=== PATIENT | male | born 1960 | race Caucasian/White ===

== ENCOUNTER 2018-11-10 14:55 | Emergency (ER) | payer SELFPAY ==
[~2018-11-10] VITALS: Ht 162.6 cm; Wt 65.8 kg
--- OUTSIDE RECORDS SUMMARY | 2018-11-10 14:57 | XMS REPORT | Summary of Care ---
Author Author [facility] Organization [facility] Address Unknown Phone Unavailable Encounter HQ Tito_guera(FIN) [phone] Date(s): 01/26/15 - 01/26/15 [facility] [address] [place] [phone] Discharge Disposition: Home Attending Physician: Yared Nicole MD Vital Signs No data available for this section Problem List Condition Effective Dates Status Health Status Informant Kidney Resolved stone(Confirmed) Murmur, Resolved heart(Confirmed) Tubes(Confirmed)1 Resolved 1ear tubes. Allergies, Adverse Reactions, Alerts Substance Reaction Severity Status NKDA Active Medications No data available for this section Results No data available for this section Immunizations Vaccine Date Refusal Reason diphtheria/pertussis, acel/tetanus adult 01/07/15 Procedures Procedure Date Related Diagnosis Body Site Injection procedure for shoulder arthrography 01/26/[address]/MRI shoulder arthrography Colonoscopy1 Kidney stone analysis2 1with biopsy removal. 2kidney stone removal Social History Social History Type Response Alcohol Current, Type Beer. Frequency: 1-2 times per month. Smoking Status Never smoker; Exposure to Tobacco Smoke None; Cigarette Smoking Last 365 Days No; Reg Smoking Cessation Counseling No Assessment and Plan No data available for this section
--- OUTSIDE RECORDS SUMMARY | 2018-11-10 14:57 | XMS REPORT | Summary of Care ---
Author Author [facility] Organization [facility] Address Unknown Phone Unavailable Encounter THOMAS Cameron(MADONNA) [id number] Date(s): 01/07/15 - 01/12/15 [facility] [address] [employer] provided by [facility] [place] [address]- Discharge Disposition: Home Attending Physician: Mendoza Garcia MD Admitting Physician: Sarai Powell MD Vital Signs 1 2 3 Most recent to oldest [Reference Range]: 162.56 cm (01/08/15 12:50 AM) 170.18 cm (01/07/15 5:30 PM) Height 98.1 DegF (01/12/15 11:19 AM) 98.4 DegF (01/12/15 7:44 AM) 98.5 DegF (01/12/15 12:25 AM) Temperature Oral [96.4-99.1 DegF] 110/75 mmHg (01/12/15 11:19 AM) 111/63 mmHg (01/12/15 7:44 AM) 119/71 mmHg (01/12/15 12:25 AM) Blood Pressure [90-140/60-90 mmHg] 18 BRMIN (01/12/15 11:19 AM) 18 BRMIN (01/12/15 7:44 AM) 18 BRMIN (01/12/15 12:25 AM) Respiratory Rate [14-20 BRMIN] 78 bpm (01/12/15 11:19 AM) 80 bpm (01/12/15 7:44 AM) 78 bpm (01/12/15 12:25 AM) Peripheral Pulse Rate [60-100 bpm] 68.182 kg (01/08/15 12:50 AM) 75 kg (01/07/15 5:30 PM) Weight 25.8 m2 (01/08/15 12:50 AM) 25.9 m2 (01/07/15 5:30 PM) Body Mass Index Problem List Condition Effective Dates Status Health Status Informant Kidney Resolved stone(Confirmed) Murmur, Resolved heart(Confirmed) Tubes(Confirmed)1 Resolved 1ear tubes. Allergies, Adverse Reactions, Alerts Substance Reaction Severity Status NKDA Active Medications 1/2 NS 500 mL 500 mL, Rate: 75 ml/hr, Infuse over: 6.7 hr, Route: IV, Dosing Weight 68.182 kg, Total Volume: 500, Start date: 01/08/15 18:36:00, Duration: 1 doses or times, S top date: 01/09/15 1:17:00 Start Date: 01/08/15 Stop Date: 01/08/15 Status: Completed acetaminophen 1,000 mg, 2 tab, Route: PO, Drug form: TAB, Q6H, Start date: 01/09/15 18:00:00, Duration: 30 day, Stop date: 02/08/15 12:00:00 Notes: Max acetaminophen 4000 mg/day (4 gm/day). (Same as: Tylenol Extra Streng th) Start Date: 01/09/15 Stop Date: 01/12/15 Status: Discontinued acetaminophen 650 mg, Route: PO, Drug form: TAB, ONCE, Dosing Weight 75, kg, Priority: STAT, S tart date: 01/07/15 22:16:00, Stop date: 01/07/15 22:16:00 Start Date: 01/07/15 Stop Date: 01/07/15 Status: Completed acetaminophen 1,000 mg, 100 mL, Route: IVPB, Drug form: INJ, Q6Hnow, Dosing Weight 75, kg, Sta rt date: 01/08/15 0:00:00, Duration: 30 day, Stop date: 02/06/15 18:00:00 Notes: Infuse over 15 minutesDo not exceed 4gm/day of acetaminophen MEDICAT ION WASTE Product Size: 1000 mgProduct Wasted: _0__ mg Start Date: 01/08/15 Stop Date: 01/09/15 Status: Discontinued Ancef 1 gm, Route: IVPB, Drug form: PDR/INJ, Q8H, Dosing Weight 68.182, kg, Start date : 01/08/15 18:00:00, Duration: 48 hr, Stop date: 01/10/15 10:00:00 Notes: (Same As: Ancef, Kefzol) MEDICATION WASTE Product Size: 1000 mgP roduct Wasted: ___ mg Start Date: 01/08/15 Stop Date: 01/08/15 Status: Canceled Ancef 2 gm, Route: IVP, ONCE, Dosing Weight 68.182, kg, Start date: 01/08/15 10:46:00, Duration: 1 doses or times, Stop date: 01/08/15 10:46:00, Surgical Prophylaxis Only; For patients < 120 kg Start Date: 01/08/15 Stop Date: 01/08/15 Status: Completed Ancef + Sodium Chloride 0.9% IV 100 mL 2 gm, Route: IVPB, ABXQ8H, Dosing Weight 75, kg, Priority: STAT, Start date: 20:35:00, Duration: 30 day, Stop date: 02/06/15 12:00:00 Notes: (Same As: Ancef, Kefzol) MEDICATION WASTE Product Size: 1000 mgP roduct Wasted: 0 mg Start Date: 01/07/15 Stop Date: 01/08/15 Status: Discontinued Ancef + Sodium Chloride 0.9% IV 100 mL 2 gm, Route: IVPB, ONCE, Dosing Weight 75, kg, Priority: STAT, Start date: 01/07 17:43:00, Stop date: 01/07/15 17:43:00 Notes: (Same As: Ancef, Kefzol) MEDICATION WASTE Product Size: 1000 mgP roduct Wasted: 0 mg Start Date: 01/07/15 Stop Date: 01/07/15 Status: Completed Benadryl 12.5 mg, 5 mL, Route: PO, Drug form: LIQ, ONCE, Dosing Weight 68.182, kg, Start date: 01/08/15 15:45:00, Stop date: 01/08/15 15:45:00 Notes: (Same as: Benadryl) Start Date: 01/08/15 Stop Date: 01/08/15 Status: Completed Benadryl 25 mg, 1 cap, Route: PO, Drug form: CAP, TID, Dosing Weight 68.182, kg, PRN Itch ing, Start date: 01/08/15 15:45:00, Duration: 30 day, Stop date: 02/07/15 15:44: 00 Notes: (Same as: Benadryl) Start Date: 01/08/15 Stop Date: 01/12/15 Status: Discontinued bisacodyl 10 mg, 1 supp, Route: ND, Drug form: SUPP, Daily, Dosing Weight 75, kg, PRN Cons tipation, Start date: 01/07/15 22:33:00, Duration: 30 day, Stop date: 02/06/15 2 2:32:00 Notes: (Same As: Dulcolax, Bisco-Lax) Start Date: 01/07/15 Stop Date: 01/12/15 Status: Discontinued Cleocin HCl + Sodium Chloride 0.9% IV 100 mL 600 mg, 4 mL, Route: IVPB, Drug form: INJ, ABXQ8H, Start date: 01/08/15 18:00:00 , Stop date: 01/10/15 18:00:00 Notes: (clindamycin 150 mg/1 ml (600 mg/4 ml VL) INJ) (Same As: Cleocin) Start Date: 01/08/15 Stop Date: 01/10/15 Status: Completed Dextrose 5% with 0.9% NaCl IV 1,000 mL 1,000 mL, Rate: 100 ml/hr, Infuse over: 10 hr, Route: IV, Dosing Weight 75 kg, T otal Volume: 1,000, Start date: 01/07/15 22:33:00, Duration: 30 day, Stop date: 02/06/15 22:32:00 Start Date: 01/07/15 Stop Date: 01/08/15 Status: Discontinued Dilaudid 1 mg, 0.5 mL, Route: IV, Drug form: INJ, ONCE, Dosing Weight 75, kg, Start date: 01/07/15 19:18:00, Stop date: 01/07/15 19:18:00 Notes: (Same as: Dilaudid) Start Date: 01/07/15 Stop Date: 01/07/15 Status: Completed Dilaudid 1 mg, 0.5 mL, Route: IV, Drug form: INJ, ONCE, Dosing Weight 75, kg, Start date: 01/07/15 20:30:00, Stop date: 01/07/15 20:30:00 Notes: Same as: Dilaudid Start Date: 01/07/15 Stop Date: 01/07/15 Status: Completed diphenhydrAMINE 12.5 mg, 5 mL, Route: PO, Drug form: LIQ, Q6H, Dosing Weight 75, kg, PRN Itching , Start date: 01/07/15 22:33:00, Duration: 30 day, Stop date: 02/06/15 22:32:00 Notes: (Same as: Benadryl) Start Date: 01/07/15 Stop Date: 01/08/15 Status: Discontinued docusate 100 mg, 1 cap, Route: PO, Drug form: CAP, BID, Dosing Weight 75, kg, Start date: 01/08/15 9:00:00, Duration: 30 day, Stop date: 02/06/15 17:00:00 Notes: (Same as: Colace) (Do Not Crush) Start Date: 01/08/15 Stop Date: 01/12/15 Status: Discontinued docusate sodium 100 mg oral capsule 100 mg=1 cap, PO, BID, # 28 cap, 0 Refill(s) Start Date: 01/12/15 Stop Date: 01/26/15 Status: Ordered fentaNYL 50 microgram, Route: IVP, ONCE, Dosing Weight 75, kg, Priority: STAT, Start date : 01/07/15 17:44:00, Stop date: 01/07/15 17:44:00 Start Date: 01/07/15 Stop Date: 01/07/15 Status: Completed fentaNYL 50 microgram, Route: IVP, ONCE, Dosing Weight 75, kg, Priority: STAT, Start date : 01/07/15 17:44:00, Stop date: 01/07/15 17:44:00 Start Date: 01/07/15 Stop Date: 01/07/15 Status: Completed Flomax 0.4 mg, 1 cap, Route: PO, Drug form: CAP, Daily, Dosing Weight 68.182, kg, Start date: 01/09/15 14:00:00, Duration: 30 day, Stop date: 02/08/15 9:00:00 Notes: (Same As: Flomax) "Do Not Crush" Start Date: 01/09/15 Stop Date: 01/12/15 Status: Discontinued gabapentin 300 mg, 1 cap, Route: PO, Drug form: CAP, Q8Hnow, Dosing Weight 75, kg, Start da te: 01/08/15 0:00:00, Duration: 30 day, Stop date: 02/06/15 16:00:00 Notes: (Same as: Neurontin) Start Date: 01/08/15 Stop Date: 01/12/15 Status: Discontinued gabapentin 300 mg oral capsule 300 mg=1 cap, PO, Q8Hnow, # 42 cap, 0 Refill(s) Start Date: 01/12/15 Stop Date: 01/26/15 Status: Ordered gentamicin + Sodium Chloride 0.9% IV 100 mL 380 mg, 9.5 mL, Route: IVPB, ONCE, Dosing Weight 75, kg, Priority: STAT, Start d ate: 01/07/15 19:31:00, Stop date: 01/07/15 19:31:00 Notes: TIME CRITICAL MEDICATION(Same as Garamycin) Start Date: 01/07/15 Stop Date: 01/07/15 Status: Discontinued Lidoderm 5% topical film (patch) 1 patch, TOP, Q24H, # 30 patch, 0 Refill(s) Start Date: 01/12/15 Stop Date: 02/11/15 Status: Ordered Lidoderm 5% topical film (patch) 1 patch, Route: TOP, Q24H, Drug form: FILM, Start date: 01/08/15 0:00:00, Durati on: 30 day, Stop date: 02/06/15 0:00:00 Notes: Apply only once for up to 12 hours in [id number] period (12 hours on and 12 hours off).(Same as: Lidoderm)"Remove old patch before application of new patch" Start Date: 01/08/15 Stop Date: 01/12/15 Status: Discontinued Lovenox 30 mg, 0.3 mL, Route: SUB-Q, Drug form: INJ, Q12H, Dosing Weight 75, kg, Priorit y: Routine, Start date: 01/08/15 9:00:00, Duration: 30 day, Stop date: 02/06/15 21:00:00 Notes: (Same as: Lovenox) Start Date: 01/08/15 Stop Date: 01/12/15 Status: Discontinued Lovenox 1 mg/kg, Route: SUB-Q, Drug form: INJ, ONCE, Dosing Weight 75, kg, Priority: STA T, Start date: 01/07/15 22:35:00, Stop date: 01/07/15 22:35:00 Start Date: 01/07/15 Stop Date: 01/07/15 Status: Discontinued melatonin 3 mg, 1 tab, Route: PO, Drug form: TAB, Bedtime, Dosing Weight 75, kg, PRN Insom anabell, Start date: 01/07/15 22:33:00, Duration: 30 day, Stop date: 02/06/15 22:32: 00 Notes: (Same as: Melatonin) Start Date: 01/07/15 Stop Date: 01/12/15 Status: Discontinued morphine Sulfate 4 mg, 1 mL, Route: IVP, Drug form: INJ, ONCE, Dosing Weight 75, kg, Priority: ST AT, Start date: 01/07/15 20:10:00, Stop date: 01/07/15 20:10:00 Notes: (Same as:MORPhine Sulfate) Start Date: 01/07/15 Stop Date: 01/07/15 Status: Ordered morphine Sulfate 2 mg, 1 mL, Route: IVP, Drug form: INJ, Q4H, Dosing Weight 75, kg, PRN Pain Scor e 7-10, Start date: 01/07/15 22:33:00, Duration: 30 day, Stop date: 02/06/15 22: 32:00 Notes: (Same as:MORPhine Sulfate) Start Date: 01/07/15 Stop Date: 01/12/15 Status: Discontinued Ofirmev 1,000 mg, Route: IV, ONCE, Dosing Weight 68.182, kg, Start date: 01/08/15 13:19: 00, Stop date: 01/08/15 13:19:00 Start Date: 01/08/15 Stop Date: 01/08/15 Status: Discontinued ondansetron 4 mg, 2 mL, Route: IVP, Drug form: INJ, Q6H, Dosing Weight 75, kg, PRN Nausea & Vomiting, Start date: 01/07/15 22:33:00, Duration: 30 day, Stop date: 02/06/15 22:32:00 Notes: (Same as: Andres) MEDICATION WASTE Product Size: 4 mgProduct Was vane: _0__ mg Start Date: 01/07/15 Stop Date: 01/12/15 Status: Discontinued oxyCODONE 5 mg immediate release 5 mg, 1 tab, Route: PO, Drug form: TAB, Q4H, Dosing Weight 75, kg, PRN Pain Scor e 4-6, Start date: 01/07/15 22:33:00, Duration: 30 day, Stop date: 02/06/15 22:3 2:00 Notes: (Same as: Roxicodone) Start Date: 01/07/15 Stop Date: 01/12/15 Status: Discontinued oxyCODONE 5 mg immediate release 10 mg, 2 tab, Route: PO, Drug form: TAB, Q4H, Dosing Weight 75, kg, PRN Pain Sco re 7-10, Start date: 01/07/15 22:33:00, Duration: 30 day, Stop date: 02/06/15 22 :32:00 Notes: (Same as: Roxicodone) Start Date: 01/07/15 Stop Date: 01/12/15 Status: Discontinued oxyCODONE 5 mg oral tablet 5 mg=1 tab, PO, Q4H, PRN Pain Score 4-6, 0 Refill(s) Start Date: 01/12/15 Status: Ordered oxyCODONE 5 mg/5 mL oral solution 5 mg, 5 mL, Route: PO, ONCE, Dosing Weight 68.182, kg, Start date: 01/08/15 13:1 8:00, Stop date: 01/08/15 13:18:00 Start Date: 01/08/15 Stop Date: 01/08/15 Status: Discontinued PlasmaLyte A PH-7.4 1,000 mL 1,000 mL, Rate: 1,000 ml/hr, Infuse over: 1 hr, Route: IV, Dosing Weight 75 kg, Total Volume: 1,000, Start date: 01/07/15 17:44:00, Duration: 30 day, Stop date: 02/06/15 17:43:00 Notes: (Same as: Isolyte S PH 7.4) Start Date: 01/07/15 Stop Date: 01/12/15 Status: Discontinued PlasmaLyte A PH-7.4 1,000 mL 1,000 mL, Rate: 1,000 ml/hr, Infuse over: 1 hr, Route: IV, Dosing Weight 75 kg, Total Volume: 1,000, Start date: 01/07/15 20:10:00, Duration: 1 doses or times, Stop date: 01/07/15 21:09:00 Notes: (Same as: Isolyte S PH 7.4) Start Date: 01/07/15 Stop Date: 01/07/15 Status: Completed PlasmaLyte A PH-7.4 1,000 mL 1,000 mL, Rate: 1,000 ml/hr, Infuse over: 1 hr, Route: IV, Dosing Weight 75 kg, Total Volume: 1,000, Start date: 01/07/15 22:16:00, Duration: 1 doses or times, Stop date: 01/07/15 23:15:00 Notes: (Same as: Isolyte S PH 7.4) Start Date: 01/07/15 Stop Date: 01/07/15 Status: Completed polyethylene glycol 3350 17 gm, 1 pkt, Route: PO, Drug form: PWDR, Daily, Dosing Weight 75, kg, Start roberto e: 01/08/15 9:00:00, Duration: 30 day, Stop date: 02/06/15 9:00:00 Notes: Dissolve in 8 oz of water or juice.(Same as: Miralax) Start Date: 01/08/15 Stop Date: 01/12/15 Status: Discontinued remove patch 1 patch, Route: TOP, Q24H, Drug form: ERFILM, Start date: 01/08/15 12:00:00, Dur ation: 30 day, Stop date: 02/06/15 12:00:00 Notes: Remove patch 12 hours after application each day. Start Date: 01/08/15 Stop Date: 01/12/15 Status: Discontinued Saline Flush 0.9% 10 mL, Route: IVP, Drug Form: INJ, Dosing Weight 75, kg, PRN, PRN Line Flush, St art date: 01/07/15 17:35:00, Duration: 30 day, Stop date: 02/06/15 17:34:00 Notes: (Same as: BD Posiflush) Start Date: 01/07/15 Stop Date: 01/12/15 Status: Discontinued Saline Flush 0.9% 10 ml, Route: IVP, Drug Form: INJ, Dosing Weight 75, kg, PRN, PRN Line Flush, St art date: 01/07/15 22:33:00, Duration: 30 day, Stop date: 02/06/15 22:32:00 Notes: (Same as: BD Posiflush) Start Date: 01/07/15 Stop Date: 01/12/15 Status: Discontinued scopolamine 1.5 mg transdermal film 1 patch, Route: TOP, Drug Form: ERFILM, Dosing Weight 75, kg, Q72H, Apply behind ear. Avoid use in elderly., Start date: 01/08/15 9:00:00, Duration: 30 day, St op date: 02/04/15 9:00:00 Notes: Change patch every 72 hours (Same as: Transderm-Scop) Start Date: 01/08/15 Stop Date: 01/11/15 Status: Discontinued senna 8.6 mg oral tablet 17.2 mg=2 tab, PO, Bedtime, X 10 day, # 20 tab, 0 Refill(s) Start Date: 01/12/15 Stop Date: 01/22/15 Status: Ordered senna 8.6 mg oral tablet 17.2 mg, 2 tab, Route: PO, Drug Form: TAB, Dosing Weight 68.182, kg, Bedtime, St art date: 01/08/15 21:00:00, Duration: 30 day, Stop date: 02/06/15 21:00:00 Notes: (Same as: Senokot) Start Date: 01/08/15 Stop Date: 01/12/15 Status: Discontinued tamsulosin 0.4 mg oral capsule 0.4 mg=1 cap, PO, Daily, # 30 cap, 0 Refill(s) Start Date: 01/12/15 Stop Date: 02/11/15 Status: Ordered tramadol 100 mg, 2 tab, Route: PO, Drug form: TAB, Q6Hnow, Dosing Weight 75, kg, Start da te: 01/08/15 0:00:00, Duration: 30 day, Stop date: 02/06/15 18:00:00 Notes: Not to exceed 400mg/day. (Same As: Ultram) Start Date: 01/08/15 Stop Date: 01/12/15 Status: Discontinued tramadol 50 mg oral tablet 100 mg=2 tab, PO, Q6Hnow, X 10 day, # 80 tab, 0 Refill(s) Start Date: 01/12/15 Stop Date: 01/22/15 Status: Ordered Visipaque 320mg/ml 120 mL, Route: IVP, Drug Form: SOLN, Dosing Weight 75, kg, ONCALL, STAT, Start d ate: 01/07/15 18:12:00, Duration: 1 doses or times, Dose=2.2ml/kg, Max bslx=209 ml -- "To be infused by Radiology Staff ONLY" Start Date: 01/07/15 Stop Date: 01/07/15 Status: Completed Results BLOOD BANK RESULTS 1 2 3 Most recent to oldest [Reference Range]: A NEG *Unknown* (01/07/15 7:02 PM) ABO/Rh Negative (01/07/15 7:02 PM) Antibody Scrn ELECTROLYTES 1 2 3 Most recent to oldest [Reference Range]: 138 mEq/L (01/10/15 4:42 AM) 136 mEq/L (01/09/15 5:20 AM) 140 mEq/L (01/08/15 1:51 AM) Sodium Lvl [135-145 mEq/L] 3.9 mEq/L (01/10/15 4:42 AM) 4.3 mEq/L (01/09/15 5:20 AM) 4.0 mEq/L (01/08/15 1:51 AM) Potassium Lvl [3.5-5.1 mEq/L] 104 mEq/L (01/10/15 4:42 AM) 105 mEq/L (01/09/15 5:20 AM) 106 mEq/L (01/08/15 1:51 AM) Chloride Lvl [95-109 mEq/L] 23 mEq/L *LOW* (01/10/15 4:42 AM) 26 mEq/L (01/09/15 5:20 AM) 26 mEq/L (01/08/15 1:51 AM) CO2 [24-32 mEq/L] 14.9 mEq/L (01/10/15 4:42 AM) 9.3 mEq/L *LOW* (01/09/15 5:20 AM) 12.0 mEq/L (01/08/15 1:51 AM) AGAP [10.0-20.0 mEq/L] CHEM PANEL 1 2 3 Most recent to oldest [Reference Range]: 0.85 mg/dL (01/10/15 4:42 AM) 1.15 mg/dL (01/09/15 5:20 AM) 1.11 mg/dL (01/08/15 1:51 AM) Creatinine Lvl [0.50-1.40 mg/dL] 100 mL/min/1.73m2 1 *NA* (01/10/15 4:42 AM) 72 mL/min/1.73m2 2 *NA* (01/09/15 5:20 AM) 75 mL/min/1.73m2 3 *NA* (01/08/15 1:51 AM) eGFR 10 mg/dL (01/10/15 4:42 AM) 13 mg/dL (01/09/15 5:20 AM) 11 mg/dL (01/08/15 1:51 AM) BUN [7-22 mg/dL] 96 mg/dL (01/10/15 4:42 AM) 105 mg/dL *HI* (01/09/15 5:20 AM) 113 mg/dL *HI* (01/08/15 1:51 AM) Glucose Lvl [70-99 mg/dL] 8.6 mg/dL (01/10/15 4:42 AM) 7.7 mg/dL *LOW* (01/09/15 5:20 AM) 8.4 mg/dL *LOW* (01/08/15 1:51 AM) Calcium Lvl [8.5-10.5 mg/dL] 2.4 mg/dL *LOW* (01/08/15 1:51 AM) Phosphorus [2.5-4.5 mg/dL] 2.0 mg/dL (01/10/15 4:42 AM) 1.8 mg/dL (01/08/15 1:51 AM) Magnesium Lvl [1.8-2.4 mg/dL] 2.5 mMol/L *HI* (01/07/15 5:37 PM) Lactic Acid Lvl [0.5-2.2 mMol/L] 1Result Comment: The eGFR is calculated using the CKD-EPI formula. In most young, healthy individuals the eGFR will be >90 mL/min/1.73m2. The eGFR declines with age. An eGFR of 60-89 may be normal in some populations, particularly the elderly, for whom the CKD-EPI formula has not been extensively validated. Use of the eGFR is not recommended in the following populations: Individuals with unstable creatinine concentrations, including patients and those with serious co-morbid conditions. Patients with extremes in muscle mass or diet. The data above are obtained from the National Kidney Disease Education Program ( NKDEP) which additionally recommends that when the eGFR is used in patients with extremes of body mass index for purposes of drug dosing, the eGFR should be mul tiplied by the estimated BMI. 2Result Comment: The eGFR is calculated using the CKD-EPI formula. In most young, healthy individuals the eGFR will be >90 mL/min/1.73m2. The eGFR declines with age. An eGFR of 60-89 may be normal in some populations, particularly the elderly, for whom the CKD-EPI formula has not been extensively validated. Use of the eGFR is not recommended in the following populations: Individuals with unstable creatinine concentrations, including patients and those with serious co-morbid conditions. Patients with extremes in muscle mass or diet. The data above are obtained from the National Kidney Disease Education Program ( NKDEP) which additionally recommends that when the eGFR is used in patients with extremes of body mass index for purposes of drug dosing, the eGFR should be mul tiplied by the estimated BMI. 3Result Comment: The eGFR is calculated using the CKD-EPI formula. In most young, healthy individuals the eGFR will be >90 mL/min/1.73m2. The eGFR declines with age. An eGFR of 60-89 may be normal in some populations, particularly the elderly, for whom the CKD-EPI formula has not been extensively validated. Use of the eGFR is not recommended in the following populations: Individuals with unstable creatinine concentrations, including patients and those with serious co-morbid conditions. Patients with extremes in muscle mass or diet. The data above are obtained from the National Kidney Disease Education Program ( NKDEP) which additionally recommends that when the eGFR is used in patients with extremes of body mass index for purposes of drug dosing, the eGFR should be mul tiplied by the estimated BMI. TOXICOLOGY 1 2 3 Most recent to oldest [Reference Range]: <0.003 % (01/07/15 5:37 PM) Etoh (%) <3.0 mg/dL (01/07/15 5:37 PM) Ethanol Lvl URINE AND STOOL 1 2 3 Most recent to oldest [Reference Range]: Clear (01/09/15 10:33 PM) Clear (01/07/15 11:01 PM) UA Turbidity [Clear] Yellow *NA* (01/09/15 10:33 PM) Yellow *NA* (01/07/15 11:01 PM) UA Color [Yellow] 5.0 (01/09/15 10:33 PM) UA pH [5.0-8.0] 7.5 (01/07/15 11:01 PM) UA pH [5.0-8.0] 1.007 (01/09/15 10:33 PM) UA Spec Grav [<=1.030] 1.010 (01/07/15 11:01 PM) UA Spec Grav [<=1.030] Negative mg/dL *NA* (01/09/15 10:33 PM) UA Glucose [Negative mg/dL] Negative (01/07/15 11:01 PM) UA Glucose [Negative] Negative (01/09/15 10:33 PM) Trace *ABN* (01/07/15 11:01 PM) UA Blood [Negative] 10 mg/dL *ABN* (01/09/15 10:33 PM) UA Ketones [Negative mg/dL] Negative *NA* (01/07/15 11:01 PM) UA Ketones [Negative] Negative mg/dL (01/09/15 10:33 PM) UA Protein [Negative mg/dL] Negative (01/07/15 11:01 PM) UA Protein [Negative] <=1.0 mg/dL *NA* (01/09/15 10:33 PM) UA Urobilinogen [0.1-1.0 mg/dL] 0.2 EU/dL (01/07/15 11:01 PM) UA Urobilinogen [0.1-1.0 EU/dL] Negative *NA* (01/09/15 10:33 PM) Negative *NA* (01/07/15 11:01 PM) UA Bili [Negative] Negative (01/09/15 10:33 PM) Negative (01/07/15 11:01 PM) UA Leuk Est [Negative] Negative (01/09/15 10:33 PM) Negative (01/07/15 11:01 PM) UA Nitrite [Negative] <1 /HPF (01/09/15 10:33 PM) UA WBC [0-5 /HPF] None Seen (01/07/15 11:01 PM) UA WBC [None Seen] 0-2 /HPF (01/07/15 11:01 PM) UA RBC [0-2 /HPF] Few /HPF (01/07/15 11:01 PM) UA Bacteria [None Seen /HPF] None Seen *NA* (01/09/15 10:33 PM) UA Sq Epi None Seen (01/07/15 11:01 PM) UA Sq Epi [Few] Few /LPF *NA* (01/09/15 10:33 PM) Rare /LPF (01/07/15 11:01 PM) UA Mucus [None Seen /LPF] HEMATOLOGY 1 2 3 Most recent to oldest [Reference Range]: 7.5 K/CMM (01/11/15 8:29 AM) 10.9 K/CMM *HI* (01/09/15 5:20 AM) 11.6 K/CMM *HI* (01/08/15 1:51 AM) WBC [3.7-10.4 K/CMM] 3.53 M/CMM *LOW* (01/11/15 8:29 AM) 4.02 M/CMM *LOW* (01/09/15 5:20 AM) 4.52 M/CMM *LOW* (01/08/15 1:51 AM) RBC [4.70-6.10 M/CMM] 10.7 g/dL *LOW* (01/11/15 8:29 AM) 12.1 g/dL *LOW* (01/09/15 5:20 AM) 13.3 g/dL *LOW* (01/08/15 1:51 AM) Hgb [14.0-18.0 g/dL] 31.4 % *LOW* (01/11/15 8:29 AM) 36.6 % *LOW* (01/09/15 5:20 AM) 40.4 % *LOW* (01/08/15 1:51 AM) Hct [42.0-54.0 %] 89.0 fL (01/11/15 8:29 AM) 91.1 fL (01/09/15 5:20 AM) 89.3 fL (01/08/15 1:51 AM) MCV [80.0-94.0 fL] 30.2 pg (01/11/15 8:29 AM) 30.0 pg (01/09/15 5:20 AM) 29.5 pg (01/08/15 1:51 AM) MCH [27.0-31.0 pg] 33.9 g/dL (01/11/15 8:29 AM) 33.0 g/dL (01/09/15 5:20 AM) 33.1 g/dL (01/08/15 1:51 AM) MCHC [32.0-36.0 g/dL] 12.8 % (01/11/15 8:29 AM) 13.0 % (01/09/15 5:20 AM) 12.6 % (01/08/15 1:51 AM) RDW [11.5-14.5 %] 249 K/CMM (01/11/15 8:29 AM) 233 K/CMM (01/09/15 5:20 AM) 227 K/CMM (01/08/15 1:51 AM) Platelet [133-450 K/CMM] 7.7 fL (01/11/15 8:29 AM) 8.2 fL (01/09/15 5:20 AM) 8.8 fL (01/08/15 1:51 AM) MPV [7.4-10.4 fL] 67.9 % (01/11/15 8:29 AM) 70.0 % (01/09/15 5:20 AM) 78.0 % *HI* (01/08/15 1:51 AM) Segs [45.0-75.0 %] 16.6 % *LOW* (01/11/15 8:29 AM) 15.0 % *LOW* (01/09/15 5:20 AM) 11.1 % *LOW* (01/08/15 1:51 AM) Lymphocytes [20.0-40.0 %] 10.8 % (01/11/15 8:29 AM) 12.1 % *HI* (01/09/15 5:20 AM) 9.5 % (01/08/15 1:51 AM) Monocytes [2.0-12.0 %] 4.2 % *HI* (01/11/15 8:29 AM) 2.7 % (01/09/15 5:20 AM) 1.0 % (01/08/15 1:51 AM) Eosinophils [0.0-4.0 %] 0.5 % (01/11/15 8:29 AM) 0.2 % (01/09/15 5:20 AM) 0.4 % (01/08/15 1:51 AM) Basophils [0.0-1.0 %] 5.1 K/CMM (01/11/15 8:29 AM) 7.6 K/CMM (01/09/15 5:20 AM) 9.1 K/CMM *HI* (01/08/15 1:51 AM) Segs-Bands # [1.5-8.1 K/CMM] 1.2 K/CMM (01/11/15 8:29 AM) 1.6 K/CMM (01/09/15 5:20 AM) 1.3 K/CMM (01/08/15 1:51 AM) Lymphocytes # [1.0-5.5 K/CMM] 0.8 K/CMM (01/11/15 8:29 AM) 1.3 K/CMM *HI* (01/09/15 5:20 AM) 1.1 K/CMM *HI* (01/08/15 1:51 AM) Monocytes # [0.0-0.8 K/CMM] 0.3 K/CMM (01/11/15 8:29 AM) 0.3 K/CMM (01/09/15 5:20 AM) 0.1 K/CMM (01/08/15 1:51 AM) Eosinophils # [0.0-0.5 K/CMM] 0.1 K/CMM (01/07/15 5:37 PM) Basophils # [0.0-0.2 K/CMM] 14.8 seconds *HI* (01/08/15 1:51 AM) PT [12.0-14.7 seconds] 1.13 (01/08/15 1:51 AM) INR [0.85-1.17] 26.6 seconds (01/08/15 1:51 AM) PTT [22.9-35.8 seconds] Citrated Whole Blood (01/07/15 5:37 PM) Rapid TEG Sample Type 113 seconds (01/07/15 5:37 PM) ACT (TEG) [86-118 seconds] 0.6 minutes *NA* (01/07/15 5:37 PM) Split Point 0.7 minutes (01/07/15 5:37 PM) R-time [0.4-0.7 minutes] 1.2 minutes (01/07/15 5:37 PM) K-time [0.6-2.3 minutes] 75 degrees (01/07/15 5:37 PM) Angle [64-80 degrees] 66 mm (01/07/15 5:37 PM) Max Amp [52-71 mm] 9.7 K d/sc (01/07/15 5:37 PM) G-value [5.0-11.6 K d/sc] 1.2 % (01/07/15 5:37 PM) Estimated % Lysis [0.0-7.5 %] Immunizations Vaccine Date Refusal Reason diphtheria/pertussis, acel/tetanus adult 01/07/15 Procedures Procedure Date Related Diagnosis Body Site Colonoscopy1 Kidney stone analysis2 1with biopsy removal. 2kidney stone removal Social History Social History Type Response Alcohol Current, Type Beer. Frequency: 1-2 times per month. Smoking Status Never smoker; Exposure to Tobacco Smoke None; Cigarette Smoking Last 365 Days No; Reg Smoking Cessation Counseling No Assessment and Plan Extracted from: Title: Clinical Document Author: Tico Calvo MD Date: 01/12/15 ORS Progress Note S: complains of R shoulder pain, R leg pain Vitals and Temp: VitalsTmp(F)[id number] 01/12 11:[id number]--- 01/12 [id number]--- 01/12 [id number]--- 01/11 [id number]--- 01/11 12:[id number]--- 24 Hr Tmax: 98.5F (36.94c) at 01/12 00:25Vital Signs are the last 5 in the past 48 hours. PE: NAD, A+Ox3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
--- OUTSIDE RECORDS SUMMARY | 2018-11-10 14:57 | XMS REPORT | Continuity of Care Document ---
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 [facility] RIGHT ANKLE ANTERIOR IMPINGEMENT-M65.09 Active 07/19/2015 [facility] RIGHT ANKLE ANTERIOR IMPINGEMENT [facility]-RENAL STONE Active 04/25/2015 [facility] M79.671 - PAIN IN RIGHT FOOT Active 04/23/2015 [place] POSSIBLE KIDNEY STONES Active 04/06/2015 [facility] M25.511 - PAIN IN RIGHT SHOULDER Active 01/22/2015 [place] JAIL Active 01/07/2015 [facility] BRIGIDO BILLIN 5596 Active 01/07/2015 [facility] OPEN TIB/FIB FX Active 01/07/2015 [facility] Fracture of ankle (disorder) Resolved Problem 11/25/2015 [facility] [place] Kidney stone (disorder) Resolved Problem 11/25/2015 [facility], [place], [place],[facility] [place] Heart murmur (finding) Resolved Problem 11/25/2015 [facility], [place], [place],[facility] [place] Tube (qualifier value) Resolved Problem 11/25/2015 ear tubes. [facility], [place], [place],[facility] [place] UNSP FX UPPER END OF UNSP TIBIA, INIT FO Active [facility] RT SHOULDER Active [facility] [place] RT ANKLE SPRAIN Active [facility] RT ANKLE/RT SHOULDER Active [facility] ANKLE AND SHOULDER PAIN Active [facility] FCE Active [facility] [place] ILLNESS, UNSPECIFIED Active [facility] Medications Medication Details Route Status Patient Instructions Ordering Provider Order Date Source tamsulosin 0.4 mg oral capsule 0.4 mg=1 cap, PO, Daily, # 30 cap, 0 Refill(s) Active 09/08/2015 [facility] gabapentin 300 MG Oral Capsule 300 mg=1 cap, PO, Q8Hnow, # 42 cap, 0 Refill(s) Active 09/08/2015 [facility] docusate sodium 100 mg oral capsule 100 mg=1 cap, PO, BID, # 28 cap, 0 Refill(s) Active 09/08/2015 [facility] tramadol hydrochloride 50 MG Oral Tablet 100 mg=2 tab, PO, Q6H, PRN Pain Score 1-3, # 30 tab, 1 Refill(s) Active 09/08/2015 [facility] enoxaparin 40 mg/0.4 mL subcutaneous solution 40 mg=0.4 mL, SUB-Q, Q24H, Inject 0.4mL daily for a total of 21 days post-op, # 8 mL, 0 Refill(s) Active 09/08/2015 [facility] Acetaminophen 300 MG / Codeine Phosphate 30 MG Oral Tablet [Tylenol with Codeine #3] 1 tab, PO, Q6H, PRN Pain Score 1-3, # 30 tab, 1 Refill(s) Active 09/08/2015 [facility] magnesium citrate 150 ml, Route: PO, Drug Form: LIQ, Dosing Weight 81.818, kg, ONCE, Start date: 09/06/15 20:41:00 CDT, Stop date: 09/06/15 20:41:00 CDTNotes: (Same as: Citrate of Magnesia) Inactive 09/07/2015 [facility] magnesium citrate 150 ml, Route: PO, Drug Form: LIQ, Dosing Weight 81.818, kg, ONCE, STAT, Start date: 09/06/15 17:19:00 CDT, Stop date: 09/06/15 17:19:00 CDTNotes: (Same as: Citrate of Magnesia) Inactive 09/06/2015 [facility] Fleet Enema Extra 133 mL, Route: AZ, Drug Form: GRIS, Dosing Weight 81.818, kg, ONCE, Start date: 09/06/15 16:54:00 CDT, Stop date: 09/06/15 16:54:00 CDT Inactive 09/06/2015 [facility] Miralax 17 gm, 1 pkt, Route: PO, Drug form: PWDR, BID, Dosing Weight 81.818, kg, Start date: 09/06/15 0:00:00 CDT, Duration: 30 day, Stop date: 10/05/15 17:00:00 CDTNotes: Dissolve in 8 oz of water or juice. (Same as: Miralax) No Longer Active 09/06/2015 [facility] Flomax 0.4 mg, 1 cap, Route: PO, Drug form: CAP, After Dinner, Dosing Weight 81.818, kg, Start date: 09/05/15 21:00:00 CDT, Duration: 30 day, Stop date: 10/05/15 17:00:00 CDTNotes: (Same As: Flomax) "Do Not Crush" No Longer Active 09/06/2015 [facility] Docusate 100 mg, 1 cap, Route: PO, Drug form: CAP, BID, Dosing Weight 81.818, kg, Start date: 09/05/15 9:00:00 CDT, Duration: 30 day, Stop date: 10/04/15 17:00:00 CDTNotes: (Same as: Colace) (Do Not Crush) No Longer Active 09/05/2015 [facility] Methocarbamol 500 mg, 1 tab, Route: PO, Drug form: TAB, TID, Dosing Weight 81.818, kg, Start date: 09/05/15 9:00:00 CDT, Duration: 30 day, Stop date: 10/04/15 17:00:00 CDTNotes: (Same as:Robaxin) No Longer Active 09/05/2015 [facility] morphine Sulfate 4 mg, 1 mL, Route: IV, Drug form: INJ, ONCE, Start date: 09/05/15 5:00:00 CDT, Stop date: 09/05/15 5:00:00 CDTNotes: (Same as:MORPhine Sulfate) Inactive 09/05/2015 [facility] Lovenox 40 mg, 0.4 mL, Route: SUB-Q, Drug form: INJ, Q24H, Dosing Weight 81.818, kg, Start date: 09/05/15 0:00:00 CDT, Duration: 30 day, Stop date: 10/04/15 0:00:00 CDTNotes: (Same as: Lovenox) No Longer Active 09/05/2015 [facility] gabapentin 300 MG Oral Capsule 300 mg, 1 cap, Route: PO, Drug form: CAP, Q8H, Dosing Weight 81.818, kg, (CrCl > 60 ml/min), Start date: 09/05/15 0:00:00 CDT, Duration: 30 day, Stop date: 10/04/15 16:00:00 CDTNotes: (Same as: Neurontin) No Longer Active 09/05/2015 [facility] Ancef + sodium chloride 0.9% INJ 100 mL 2 gm, Route: IVPB, ABXQ8H, Dosing Weight 81.818, kg, Start date: 09/04/15 18:00:00 CDT, Duration: 1 day, Stop date: 09/05/15 6:00:00 CDTNotes: (Same As: Leonard Yoon) Cefazolin FOR IV SET ONLY MEDICATION WASTE Product Size: 1000 mg Product Wasted: 0 mg No Longer Active 09/04/2015 [facility] Acetaminophen 300 MG / Codeine Phosphate 30 MG Oral Tablet [Tylenol with Codeine #3] 1 tab, Route: PO, Drug Form: TAB, Dosing Weight 81.818, kg, Q6H, Start date: 09/04/15 18:00:00 CDT, Duration: 30 day, Stop date: 10/04/15 12:00:00 CDTNotes: Do not exceed 4gm/day of acetaminophen. (Same as: Tylenol with Codeine # 3) No Longer Active 09/04/2015 [facility] Tramadol 100 mg, 2 tab, Route: PO, Drug form: TAB, Q6H, Dosing Weight 81.818, kg, PRN Pain Score 1-3, Start date: 09/04/15 18:00:00 CDT, Stop date: 10/04/15 12:00:00 CDTNotes: Not to exceed 400mg/day. (Same As: Ultram) No Longer Active 09/04/2015 [facility] Naloxone 0.4 mg, 1 mL, Route: IVP, Drug form: INJ, Q2MIN, Dosing Weight 81.818, kg, PRN Narcotic Reversal, Start date: 09/04/15 17:23:00 CDT, Duration: 8 doses or times, Stop date: Limited # of timesNotes: Same as Narcan Inactive 09/04/2015 [facility] Flumazenil 0.2 mg, 2 mL, Route: IVP, Drug form: INJ, PRN, Dosing Weight 81.818, kg, PRN Benzodiazepine Reversal, Initial dose, Start date: 09/04/15 17:23:00 CDT, Duration: 30 day, Stop date: 10/04/15 17:22:00 C DTNotes: (Same as: Romazicon) Inactive 09/04/2015 [facility] Ondansetron 4 mg, 2 mL, Route: IVP, Drug form: INJ, ONCE, Dosing Weight 81.818, kg, PRN Nausea & Vomiting, Start date: 09/04/15 17:23:00 CDTNotes: (Same as: Zofran) MEDICATION WASTE Product Size: 4 mg Product Wasted: ___ mg Inactive 09/04/2015 [facility] Hydromorphone 0.5 mg, 0.25 mL, Route: IVP, Drug form: INJ, Q5Min, Dosing Weight 81.818, kg, PRN Pain Score 7-10, Start date: 09/04/15 17:23:00 CDT, Duration: 4 doses or times, Stop date: Limited # of timesNotes: S norma as: Dilaudid Inactive 09/04/2015 [facility] Acetaminophen 300 MG / Codeine Phosphate 30 MG Oral Tablet [Tylenol with Codeine #3] 1 tab, Route: PO, Drug Form: TAB, Dosing Weight 81.818, kg, Q6H, PRN Pain Score 1-3, Start date: 09/04/15 17:13:00 CDT, Duration: 30 day, Stop date: 10/04/15 17:12:00 CDTNotes: Do not exceed 4gm/day of acetaminophen. (Same as: Tylenol with Codeine # 3) No Longer Active 09/04/2015 [facility] Lovenox 40 mg, 0.4 mL, Route: SUB-Q, Drug form: INJ, Q24H, Dosing Weight 81.818, kg, Priority: STAT, Start date: 09/04/15 17:12:00 CDT, Duration: 30 day, Stop date: 10/03/15 18:00:00 CDTNotes: (Same as: Lovenox) Inactive 09/04/2015 [facility] ceFAZolin 2 gm, 100 mL, Route: IVPB, Drug form: INJ, PRE OP, Start date: 09/03/15 23:00:00 CDT, Duration: 1 day, Stop date: 09/04/15 22:59:00 CDTNotes: Same as: Ancef No Longer Active 09/04/2015 [facility] tramadol hydrochloride 50 MG Oral Tablet 100 mg=2 tab, PO, Q6Hnow, X 10 day, # 80 tab, 0 Refill(s) Active 01/12/2015 [facility] tamsulosin 0.4 mg oral capsule 0.4 mg=1 cap, PO, Daily, # 30 cap, 0 Refill(s) Active 01/12/2015 [facility] senna 8.6 mg oral tablet 17.2 mg=2 tab, PO, Bedtime, X 10 day, # 20 tab, 0 Refill(s) Active 01/12/2015 [facility] oxyCODONE 5 mg oral tablet 5 mg=1 tab, PO, Q4H, PRN Pain Score 4-6, 0 Refill(s) Active 01/12/2015 [facility] Lidocaine Hydrochloride 0.05 MG/MG Transdermal Patch [Lidoderm] 1 patch, TOP, Q24H, # 30 patch, 0 Refill(s) Active 01/12/2015 [facility] gabapentin 300 MG Oral Capsule 300 mg=1 cap, PO, Q8Hnow, # 42 cap, 0 Refill(s) Active 01/12/2015 [facility] docusate sodium 100 mg oral capsule 100 mg=1 cap, PO, BID, # 28 cap, 0 Refill(s) Active 01/12/2015 [facility] acetaminophen 1,000 mg, 2 tab, Route: PO, Drug form: TAB, Q6H, Start date: 01/09/15 18:00:00, Duration: 30 day, Stop date: 02/08/15 12:00:00Notes: Max acetaminophen 4000 mg/day (4 gm/day). (Same as: Tylenol Extra Strength) No Longer Active 01/10/2015 [facility] Flomax 0.4 mg, 1 cap, Route: PO, Drug form: CAP, Daily, Dosing Weight 68.182, kg, Start date: 01/09/15 14:00:00, Duration: 30 day, Stop date: 02/08/15 9:00:00Notes: (Same As: Flomax) "Do Not Crush" No Longer Active 01/09/2015 [facility] senna 8.6 mg oral tablet 17.2 mg, 2 tab, Route: PO, Drug Form: TAB, Dosing Weight 68.182, kg, Bedtime, Start date: 01/08/15 21:00:00, Duration: 30 day, Stop date: 02/06/15 21:00:00Notes: (Same as: Senokot) No Longer Active 01/09/2015 [facility] 1/2 NS 500 mL 500 mL, Rate: 75 ml/hr, Infuse over: 6.7 hr, Route: IV, Dosing Weight 68.182 kg, Total Volume: 500, Start date: 01/08/15 18:36:00, Duration: 1 doses or times, Stop date: 01/09/15 1:17:00 Inactive 01/09/2015 [facility] Cleocin HCl + Sodium Chloride 0.9% IV 100 mL 600 mg, 4 mL, Route: IVPB, Drug form: INJ, ABXQ8H, Start date: 01/08/15 18:00:00, Stop date: 01/10/15 18:00:00Notes: (clindamycin 150 mg/1 ml (600 mg/4 ml VL) INJ) (Same As: Cleocin) No Longer Active 01/09/2015 [facility] Ancef 1 gm, Route: IVPB, Drug form: PDR/INJ, Q8H, Dosing Weight 68.182, kg, Start date: 01/08/15 18:00:00, Duration: 48 hr, Stop date: 01/10/15 10:00:00Notes: (Same As: Leonard Yoon) MEDICATION WASTE Product Size: 1000 mg Product Wasted: ___ mg Inactive 01/09/2015 [facility] Benadryl 12.5 mg, 5 mL, Route: PO, Drug form: LIQ, ONCE, Dosing Weight 68.182, kg, Start date: 01/08/15 15:45:00, Stop date: 01/08/15 15:45:00Notes: (Same as: Benadryl) Inactive 01/08/2015 [facility] Ofirmev 1,000 mg, Route: IV, ONCE, Dosing Weight 68.182, kg, Start date: 01/08/15 13:19:00, Stop date: 01/08/15 13:19:00 Inactive 01/08/2015 [facility] Oxycodone Hydrochloride 1 MG/ML Oral Solution 5 mg, 5 mL, Route: PO, ONCE, Dosing Weight 68.182, kg, Start date: 01/08/15 13:18:00, Stop date: 01/08/15 13:18:00 Inactive 01/08/2015 [facility] remove patch 1 patch, Route: TOP, Q24H, Drug form: ERFILM, Start date: 01/08/15 12:00:00, Duration: 30 day, Stop date: 02/06/15 12:00:00Notes: Remove patch 12 hours after application each day. No Longer Active 01/08/2015 [facility] Ancef 2 gm, Route: IVP, ONCE, Dosing Weight 68.182, kg, Start date: 01/08/15 10:46:00, Duration: 1 doses or times, Stop date: 01/08/15 10:46:00, Surgical Prophylaxis Only; For patients Inactive 01/08/2015 [facility] 72 HR Scopolamine 0.0139 MG/HR Transdermal Patch 1 patch, Route: TOP, Drug Form: ERFILM, Dosing Weight 75, kg, Q72H, Apply behind ear. Avoid use in elderly., Start date: 01/08/15 9:00:00, Duration: 30 day, Stop date: 02/04/15 9:00:00Notes: Change patch every 72 hours (Same as: Transderm- Scop) No Longer Active 01/08/2015 [facility] POLYETHYLENE GLYCOL 3350 17 gm, 1 pkt, Route: PO, Drug form: PWDR, Daily, Dosing Weight 75, kg, Start date: 01/08/15 9:00:00, Duration: 30 day, Stop date: 02/06/15 9:00:00Notes: Dissolve in 8 oz of water or juice. (Same as: Miralax) No Longer Active 01/08/2015 [facility] Docusate 100 mg, 1 cap, Route: PO, Drug form: CAP, BID, Dosing Weight 75, kg, Start date: 01/08/15 9:00:00, Duration: 30 day, Stop date: 02/06/15 17:00:00Notes: (Same as: Colace) (Do Not Crush) No Longer Active 01/08/2015 [facility] Lovenox 30 mg, 0.3 mL, Route: SUB-Q, Drug form: INJ, Q12H, Dosing Weight 75, kg, Priority: Routine, Start date: 01/08/15 9:00:00, Duration: 30 day, Stop date: 02/06/15 21:00:00Notes: (Same as: Lovenox) No Longer Active 01/08/2015 [facility] Tramadol 100 mg, 2 tab, Route: PO, Drug form: TAB, Q6Hnow, Dosing Weight 75, kg, Start date: 01/08/15 0:00:00, Duration: 30 day, Stop date: 02/06/15 18:00:00Notes: Not to exceed 400mg/day. (Same As: Ultram) No Longer Active 01/08/2015 [facility] gabapentin 300 mg, 1 cap, Route: PO, Drug form: CAP, Q8Hnow, Dosing Weight 75, kg, Start date: 01/08/15 0:00:00, Duration: 30 day, Stop date: 02/06/15 16:00:00Notes: (Same as: Neurontin) No Longer Active 01/08/2015 [facility] Acetaminophen 1,000 mg, 100 mL, Route: IVPB, Drug form: INJ, Q6Hnow, Dosing Weight 75, kg, Start date: 01/08/15 0:00:00, Duration: 30 day, Stop date: 02/06/15 18:00:00Notes: Infuse over 15 minutes Do not exceed 4 gm/day of acetaminophen MEDICATION WASTE Product Size: 1000 mg Product Wasted: _0__ mg No Longer Active 01/08/2015 [facility] Lidocaine Hydrochloride 0.05 MG/MG Transdermal Patch [Lidoderm] 1 patch, Route: TOP, Q24H, Drug form: FILM, Start date: 01/08/15 0:00:00, Duration: 30 day, Stop date: 02/06/15 0:00:00Notes: Apply only once for up to 12 hours in a 24-hour period (12 hours on and 12 hours off). (Same as: Lidoderm) "Remove old patch before application of new patch" No Longer Active 01/08/2015 [facility] Lovenox 1 mg/kg, Route: SUB-Q, Drug form: INJ, ONCE, Dosing Weight 75, kg, Priority: STAT, Start date: 01/07/15 22:35:00, Stop date: 01/07/15 22:35:00 Inactive 01/08/2015 [facility] Melatonin 3 mg, 1 tab, Route: PO, Drug form: TAB, Bedtime, Dosing Weight 75, kg, PRN Insomnia, Start date: 01/07/15 22:33:00, Duration: 30 day, Stop date: 02/06/15 22:32:00Notes: (Same as: Melatonin) No Longer Active 01/08/2015 [facility] Diphenhydramine 12.5 mg, 5 mL, Route: PO, Drug form: LIQ, Q6H, Dosing Weight 75, kg, PRN Itching, Start date: 01/07/15 22:33:00, Duration: 30 day, Stop date: 02/06/15 22:32:00Notes: (Same as: Benadryl) No Longer Active 01/08/2015 [facility] Bisacodyl 10 mg, 1 supp, Route: AZ, Drug form: SUPP, Daily, Dosing Weight 75, kg, PRN Constipation, Start date: 01/07/15 22:33:00, Duration: 30 day, Stop date: 02/06/15 22:32:00Notes: (Same As: Dulcolax, [place]- Lax) No Longer Active 01/08/2015 [facility] Ondansetron 4 mg, 2 mL, Route: IVP, Drug form: INJ, Q6H, Dosing Weight 75, kg, PRN Nausea & Vomiting, Start date: 01/07/15 22:33:00, Duration: 30 day, Stop date: 02/06/15 22:32:00Notes: (Same as: Zofran) MEDICATION WASTE Product Size: 4 mg Product Wasted: _0__ mg No Longer Active 01/08/2015 [facility] Oxycodone Hydrochloride 5 MG Oral Tablet 5 mg, 1 tab, Route: PO, Drug form: TAB, Q4H, Dosing Weight 75, kg, PRN Pain Score 4-6, Start date: 01/07/15 22:33:00, Duration: 30 day, Stop date: 02/06/15 22:32:00Notes: (Same as: Roxicodone) No Longer Active 01/08/2015 [facility] Morphine 2 mg, 1 mL, Route: IVP, Drug form: INJ, Q4H, Dosing Weight 75, kg, PRN Pain Score 7-10, Start date: 01/07/15 22:33:00, Duration: 30 day, Stop date: 02/06/15 22:32:00Notes: (Same as:MORPhine Sulfate) No Longer Active 01/08/2015 [facility] Glucose 50 MG/ML / Sodium Chloride 0.154 MEQ/ML Injectable Solution 1,000 mL, Rate: 100 ml/hr, Infuse over: 10 hr, Route: IV, Dosing Weight 75 kg, Total Volume: 1,000, Start date: 01/07/15 22:33:00, Duration: 30 day, Stop date: 02/06/15 22:32:00 No Longer Active 01/08/2015 [facility] Saline Flush 0.9% 10 ml, Route: IVP, Drug Form: INJ, Dosing Weight 75, kg, PRN, PRN Line Flush, Start date: 01/07/15 22:33:00, Duration: 30 day, Stop date: 02/06/15 22:32:00Notes: (Same as: BD Posiflush) No Longer Active 01/08/2015 [facility] PlasmaLyte A PH-7.4 1,000 mL 1,000 mL, Rate: 1,000 ml/hr, Infuse over: 1 hr, Route: IV, Dosing Weight 75 kg, Total Volume: 1,000, Start date: 01/07/15 22:16:00, Duration: 1 doses or times, Stop date: 01/07/15 23:15:00Notes: (Same as: Isolyte S PH 7.4) Inactive 01/08/2015 [facility] Acetaminophen 650 mg, Route: PO, Drug form: TAB, ONCE, Dosing Weight 75, kg, Priority: STAT, Start date: 01/07/15 22:16:00, Stop date: 01/07/15 22:16:00 Inactive 01/08/2015 [facility] Ancef + Sodium Chloride 0.9% IV 100 mL 2 gm, Route: IVPB, ABXQ8H, Dosing Weight 75, kg, Priority: STAT, Start date: 01/07/15 20:35:00, Duration: 30 day, Stop date: 02/06/15 12:00:00Notes: (Same As: Ancef Kefzol) MEDICATION WASTE Product Size: 1000 mg Product Wasted: 0 mg No Longer Active 01/08/2015 [facility] Dilaudid 1 mg, 0.5 mL, Route: IV, Drug form: INJ, ONCE, Dosing Weight 75, kg, Start date: 01/07/15 20:30:00, Stop date: 01/07/15 20:30:00Notes: Same as: Dilaudid Inactive 01/08/2015 [facility] PlasmaLyte A PH-7.4 1,000 mL 1,000 mL, Rate: 1,000 ml/hr, Infuse over: 1 hr, Route: IV, Dosing Weight 75 kg, Total Volume: 1,000, Start date: 01/07/15 20:10:00, Duration: 1 doses or times, Stop date: 01/07/15 21:09:00Notes: (Same as: Isolyte S PH 7.4) Inactive 01/08/2015 [facility] Morphine 4 mg, 1 mL, Route: IVP, Drug form: INJ, ONCE, Dosing Weight 75, kg, Priority: STAT, Start date: 01/07/15 20:10:00, Stop date: 01/07/15 20:10:00Notes: (Same as:MORPhine Sulfate) Inactive 01/08/2015 [facility] Gentamicin Sulfate (NURSING HOME) 380 mg, 9.5 mL, Route: IVPB, ONCE, Dosing Weight 75, kg, Priority: STAT, Start date: 01/07/15 19:31:00, Stop date: 01/07/15 19:31:00Notes: TIME CRITICAL MEDICATION (Same as Garamycin) Inactive 01/08/2015 [facility] Dilaudid 1 mg, 0.5 mL, Route: IV, Drug form: INJ, ONCE, Dosing Weight 75, kg, Start date: 01/07/15 19:18:00, Stop date: 01/07/15 19:18:00Notes: (Same as: Dilaudid) Inactive 01/08/2015 [facility] iodixanol 120 mL, Route: IVP, Drug Form: SOLN, Dosing Weight 75, kg, ONCALL, STAT, Start date: 01/07/15 18:12:00, Duration: 1 doses or times, Dose=2.2ml/kg, Max [id number] -- "To be infused by Radiology Staff ONLY" Inactive 01/08/2015 [facility] PlasmaLyte A PH-7.4 1,000 mL 1,000 mL, Rate: 1,000 ml/hr, Infuse over: 1 hr, Route: IV, Dosing Weight 75 kg, Total Volume: 1,000, Start date: 01/07/15 17:44:00, Duration: 30 day, Stop date: 02/06/15 17:43:00Notes: (Same as: Isolyte S PH 7.4) No Longer Active 01/07/2015 [facility] Fentanyl 50 microgram, Route: IVP, ONCE, Dosing Weight 75, kg, Priority: STAT, Start date: 01/07/15 17:44:00, Stop date: 01/07/15 17:44:00 Inactive 01/07/2015 [facility] Ancef + Sodium Chloride 0.9% IV 100 mL 2 gm, Route: IVPB, ONCE, Dosing Weight 75, kg, Priority: STAT, Start date: 01/07/15 17:43:00, Stop date: 01/07/15 17:43:00Notes: (Same As: Ancef, Kefzol) MEDICATION WASTE Product Size: 1000 mg Product Wasted: 0 mg Inactive 01/07/2015 [facility] Saline Flush 0.9% 10 mL, Route: IVP, Drug Form: INJ, Dosing Weight 75, kg, PRN, PRN Line Flush, Start date: 01/07/15 17:35:00, Duration: 30 day, Stop date: 02/06/15 17:34:00Notes: (Same as: BD Posiflush) No Longer Active 01/07/2015 [facility] Allergies, Adverse Reactions, Alerts No Known Medication Allergies Immunizations Immunization Date Given Site Status Last Updated Comments Source diphtheria/pertussis, acel/tetanus adult 01/08/2015 Left deltoid completed [facility], [place],[facility] Results Order Name Results Value Reference Range Date Interpretation Comments Source HEMATOLOGY Hgb 12.6 14.0 - 18.0 09/05/2015 [facility] HEMATOLOGY Hct 37.0 42.0 - 54.0 09/05/2015 [facility] HEMATOLOGY WBC 7.5 3.7 - 10.4 01/11/2015 [facility] HEMATOLOGY RBC 3.53 4.70 - 6.10 01/11/2015 [facility] HEMATOLOGY MCV 89.0 80.0 - 94.0 01/11/2015 [facility] HEMATOLOGY Hgb 10.7 14.0 - 18.0 01/11/2015 [facility] HEMATOLOGY Hct 31.4 42.0 - 54.0 01/11/2015 [facility] HEMATOLOGY MCHC 33.9 32.0 - 36.0 01/11/2015 [facility] HEMATOLOGY MPV 7.7 7.4 - 10.4 01/11/2015 [facility] HEMATOLOGY RDW 12.8 11.5 - 14.5 01/11/2015 [facility] HEMATOLOGY Platelet 249 133 - 450 01/11/2015 [facility] HEMATOLOGY MCH 30.2 27.0 - 31.0 01/11/2015 [facility] HEMATOLOGY Eosinophils 4.2 0.0 - 4.0 01/11/2015 [facility] HEMATOLOGY Basophils 0.5 0.0 - 1.0 01/11/2015 [facility] HEMATOLOGY Monocytes 10.8 2.0 - 12.0 01/11/2015 [facility] HEMATOLOGY Lymphocytes # 1.2 1.0 - 5.5 01/11/2015 [facility] HEMATOLOGY Segs-Bands # 5.1 1.5 - 8.1 01/11/2015 [facility] HEMATOLOGY Lymphocytes 16.6 20.0 - 40.0 01/11/2015 [facility] HEMATOLOGY Segs 67.9 45.0 - 75.0 01/11/2015 [facility] HEMATOLOGY Eosinophils # 0.3 0.0 - 0.5 01/11/2015 [facility] HEMATOLOGY Monocytes # 0.8 0.0 - 0.8 01/11/2015 [facility] CHEM PANEL BUN 10 7 - 22 01/10/2015 [facility] CHEM PANEL Sodium Lvl 138 135 - 145 01/10/2015 [facility] CHEM PANEL Creatinine Lvl 0.85 0.50 - 1.40 01/10/2015 [facility] CHEM PANEL Potassium Lvl 3.9 3.5 - 5.1 01/10/2015 [facility] CHEM PANEL Chloride Lvl 104 95 - 109 01/10/2015 [facility] CHEM PANEL CO2 23 24 - 32 01/10/2015 [facility] CHEM PANEL Calcium Lvl 8.6 8.5 - 10.5 01/10/2015 [facility] CHEM PANEL AGAP 14.9 10.0 - 20.0 01/10/2015 [facility] CHEM PANEL eGFR 100 01/10/2015 Result Comment: The eGFR is calculated using the [...] from the National Kidney Disease Education Program (NKDEP) which additionally recommends that when the eGFR is used in patients with extremes of body mass index for purposes of drug dosing, the eGFR should be multiplied by the estimated BMI. [facility] CHEM PANEL Glucose Lvl 96 70 - 99 01/10/2015 [facility] CHEM PANEL Magnesium Lvl 2.0 1.8 - 2.4 01/10/2015 [facility] URINE AND STOOL UA Nitrite Negative (01/09/15 10:33 PM) Negative 01/10/2015 [facility] URINE AND STOOL UA Urobilinogen <=1.0 mg/dL 0.1 - 1.0 01/10/2015 [facility] URINE AND STOOL UA Leuk Est Negative (01/09/15 10:33 PM) Negative 01/10/2015 [facility] URINE AND STOOL UA Sq Epi None Seen 01/10/2015 [facility] URINE AND STOOL UA Mucus Few /LPF None Seen /LPF 01/10/2015 [facility] URINE AND STOOL UA WBC <1 0 - 5 01/10/2015 [facility] URINE AND STOOL UA Protein Negative mg/dL Negative mg/dL 01/10/2015 [facility] URINE AND STOOL UA pH 5.0 5.0 - 8.0 01/10/2015 [facility] URINE AND STOOL UA Glucose Negative mg/dL Negative mg/dL 01/10/2015 [facility] URINE AND STOOL UA Blood Negative (01/09/15 10:33 PM) Negative 01/10/2015 [facility] URINE AND STOOL UA Bili Negative *NA* (01/09/15 10:33 PM) Negative 01/10/2015 [facility] URINE AND STOOL UA Ketones 10 mg/dL Negative mg/dL 01/10/2015 [facility] URINE AND STOOL UA Turbidity Clear (01/09/15 10:33 PM) Clear 01/10/2015 [facility] URINE AND STOOL UA Color Yellow *NA* (01/09/15 10:33 PM) Yellow 01/10/2015 [facility] URINE AND STOOL UA Spec Grav 1.007 <=1.030 01/10/2015 [facility] ELECTROLYTES AGAP 9.3 10.0 - 20.0 01/09/2015 [facility] ELECTROLYTES eGFR 72 01/09/2015 Result Comment: The eGFR is calculated using the [...] from the National Kidney Disease Education Program (NKDEP) which additionally recommends that when the eGFR is used in patients with extremes of body mass index for purposes of drug dosing, the eGFR should be multiplied by the estimated BMI. [facility] ELECTROLYTES Potassium Lvl 4.3 3.5 - 5.1 01/09/2015 [facility] ELECTROLYTES Sodium Lvl 136 135 - 145 01/09/2015 [facility] ELECTROLYTES Creatinine Lvl 1.15 0.50 - 1.40 01/09/2015 [facility] ELECTROLYTES BUN 13 7 - 22 01/09/2015 [facility] ELECTROLYTES Glucose Lvl 105 70 - 99 01/09/2015 [facility] ELECTROLYTES Calcium Lvl 7.7 8.5 - 10.5 01/09/2015 [facility] ELECTROLYTES CO2 26 24 - 32 01/09/2015 [facility] ELECTROLYTES Chloride Lvl 105 95 - 109 01/09/2015 [facility] HEMATOLOGY MPV 8.2 7.4 - 10.4 01/09/2015 [facility] HEMATOLOGY MCHC 33.0 32.0 - 36.0 01/09/2015 [facility] HEMATOLOGY Platelet 233 133 - 450 01/09/2015 [facility] HEMATOLOGY RDW 13.0 11.5 - 14.5 01/09/2015 [facility] HEMATOLOGY MCH 30.0 27.0 - 31.0 01/09/2015 [facility] HEMATOLOGY MCV 91.1 80.0 - 94.0 01/09/2015 [facility] HEMATOLOGY Hgb 12.1 14.0 - 18.0 01/09/2015 [facility] HEMATOLOGY Hct 36.6 42.0 - 54.0 01/09/2015 [facility] HEMATOLOGY WBC 10.9 3.7 - 10.4 01/09/2015 [facility] HEMATOLOGY RBC 4.02 4.70 - 6.10 01/09/2015 [facility] HEMATOLOGY Eosinophils 2.7 0.0 - 4.0 01/09/2015 [facility] HEMATOLOGY Monocytes 12.1 2.0 - 12.0 01/09/2015 [facility] HEMATOLOGY Lymphocytes 15.0 20.0 - 40.0 01/09/2015 [facility] HEMATOLOGY Segs-Bands # 7.6 1.5 - 8.1 01/09/2015 [facility] HEMATOLOGY Basophils 0.2 0.0 - 1.0 01/09/2015 [facility] HEMATOLOGY Segs 70.0 45.0 - 75.0 01/09/2015 [facility] HEMATOLOGY Eosinophils # 0.3 0.0 - 0.5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 identified. IMPRESSION: 1. Limited study secondary to overlying backboard artifact and patient rotation. 2. Indeterminate mediastinum which will be further evaluated on pending CT study. 01/07/2015 [facility] Ankle 3 views DX EXAM: XR RIGHT KNEE 3 VIEWS EXAM: XR RIGHT TIBIA 2 VIEWS EXAM: XR RIGHT ANKLE 3 VIEWS DATE: 01/07/2015 at 1739 INDICATION: retirement trauma. COMPARISON: None available. TECHNIQUE: AP, lateral and oblique views of the right knee and ankle. AP and lateral regress of the right tibia and fibula. DISCUSSION: RIGHT KNEE: No acute fracture or malalignment of the knee is identified. No knee joint effusion. Small patellar osteophytes are noted. RIGHT TIBIA/FIBULA: There are transverse comminuted and displaced fractures through the junction of middle and distal thirds of tibial and fibular diaphyses with lateral displacement of the distal fragments by greater than a shafts width. There is anterior displacement of the distal tibial fracture fragment by greater than a shafts width with about 2.5 cm overriding. The fibular fracture demonstrates about 3.7 cm overriding of the fracture fragments. There is associated soft tissue swelling along with soft tissue gas representing an open injury. RIGHT ANKLE: Ankle mortise remains congruent. No fracture or malalignment of the ankle is seen. Scattered locules of subcutaneous emphysema are seen abutting the distal tibia and fibula which are likely related to the previous the described displaced fractures. IMPRESSION: 1. Open comminuted and displaced transverse fractures through the junctions of mid and distal thirds of tibial and fibular diaphyses with fracture fragment overlap and a full shafts width of lateral displacement of the distal fracture fragments. 2. Diffuse soft tissue swelling along with soft tissue gas. 01/07/2015 [facility] Tibia fibula series DX EXAM: XR RIGHT KNEE 3 VIEWS EXAM: XR RIGHT TIBIA 2 VIEWS EXAM: XR RIGHT ANKLE 3 VIEWS DATE: 01/07/2015 at 1739 INDICATION: retirement trauma. COMPARISON: None available. TECHNIQUE: AP, lateral and oblique views of the right knee and ankle. AP and lateral regress of the right tibia and fibula. DISCUSSION: RIGHT KNEE: No acute fracture or malalignment of the knee is identified. No knee joint effusion. Small patellar osteophytes are noted. RIGHT TIBIA/FIBULA: There are transverse comminuted and displaced fractures through the junction of middle and distal thirds of tibial and fibular diaphyses with lateral displacement of the distal fragments by greater than a shafts width. There is anterior displacement of the distal tibial fracture fragment by greater than a shafts width with about 2.5 cm overriding. The fibular fracture demonstrates about 3.7 cm overriding of the fracture fragments. There is associated soft tissue swelling along with soft tissue gas representing an open injury. RIGHT ANKLE: Ankle mortise remains congruent. No fracture or malalignment of the ankle is seen. Scattered locules of subcutaneous emphysema are seen abutting the distal tibia and fibula which are likely related to the previous the described displaced fractures. IMPRESSION: 1. Open comminuted and displaced transverse fractures through the junctions of mid and distal thirds of tibial and fibular diaphyses with fracture fragment overlap and a full shafts width of lateral displacement of the distal fracture fragments. 2. Diffuse soft tissue swelling along with soft tissue gas. 01/07/2015 [facility] Knee 3 views DX EXAM: XR RIGHT KNEE 3 VIEWS EXAM: XR RIGHT TIBIA 2 VIEWS EXAM: XR RIGHT ANKLE 3 VIEWS DATE: 01/07/2015 at 1739 INDICATION: retirement trauma. COMPARISON: None available. TECHNIQUE: AP, lateral and oblique views of the right knee and ankle. AP and lateral regress of the right tibia and fibula. DISCUSSION: RIGHT KNEE: No acute fracture or malalignment of the knee is identified. No knee joint effusion. Small patellar osteophytes are noted. RIGHT TIBIA/FIBULA: There are transverse comminuted and displaced fractures through the junction of middle and distal thirds of tibial and fibular diaphyses with lateral displacement of the distal fragments by greater than a shafts width. There is anterior displacement of the distal tibial fracture fragment by greater than a shafts width with about 2.5 cm overriding. The fibular fracture demonstrates about 3.7 cm overriding of the fracture fragments. There is associated soft tissue swelling along with soft tissue gas representing an open injury. RIGHT ANKLE: Ankle mortise remains congruent. No fracture or malalignment of the ankle is seen. Scattered locules of subcutaneous emphysema are seen abutting the distal tibia and fibula which are likely related to the previous the described displaced fractures. IMPRESSION: 1. Open comminuted and displaced transverse fractures through the junctions of mid and distal thirds of tibial and fibular diaphyses with fracture fragment overlap and a full shafts width of lateral displacement of the distal fracture fragments. 2. Diffuse soft tissue swelling along with soft tissue gas. 01/07/2015 [facility] Consultation Notes No Data Provided for This Section Discharge Summaries No Data Provided for This Section History and Physicals No Data Provided for This Section Vital Signs Vital Sign Value Date Comments Source Systolic (mm Hg) 111 09/08/2015 [facility] Diastolic (mm Hg) 72 09/08/2015 [facility] Temperature Oral (F) 98.6 F 09/08/2015 [facility] Heart Rate 93 09/08/2015 [facility] Respitory Rate 18 09/08/2015 [facility] Temperature Oral (F) 99.2 F 09/08/2015 [facility] Systolic (mm Hg) 97 09/08/2015 [facility] Diastolic (mm Hg) 57 09/08/2015 [facility] Heart Rate 67 09/08/2015 [facility] Respitory Rate 18 09/08/2015 [facility] Temperature Oral (F) 98.7 F 09/08/2015 [facility] Heart Rate 75 09/08/2015 [facility] Respitory Rate 18 09/08/2015 [facility] Systolic (mm Hg) 100 09/08/2015 [facility] Diastolic (mm Hg) 66 09/08/2015 [facility] Weight 81.818 09/05/2015 [facility] Height 162.56 cm 09/04/2015 [facility] BMI Calculated 30.96 09/04/2015 [facility] Weight 81.818 09/04/2015 [facility] BMI Calculated 25.46 08/30/2015 [facility] Weight 67.273 08/30/2015 [facility] Height 162.56 cm 08/30/2015 [facility] Temperature Oral (F) 98.2 F 04/07/2015 [facility] Respitory Rate 18 04/07/2015 [facility] Weight 63.636 04/07/2015 [facility] Height 162.56 cm 04/07/2015 [facility] BMI Calculated 24.08 04/07/2015 [facility] Systolic (mm Hg) 163 04/07/2015 [facility] Diastolic (mm Hg) 91 04/07/2015 [facility] Heart Rate 59 04/07/2015 [facility] Temperature Oral (F) 98.1 F 01/12/2015 [facility] Systolic (mm Hg) 110 01/12/2015 [facility] Diastolic (mm Hg) 75 01/12/2015 [facility] Respitory Rate 18 01/12/2015 [facility] Heart Rate 78 01/12/2015 [facility] Heart Rate 80 01/12/2015 [facility] Respitory Rate 18 01/12/2015 [facility] Systolic (mm Hg) 111 01/12/2015 [facility] Diastolic (mm Hg) 63 01/12/2015 [facility] Temperature Oral (F) 98.4 F 01/12/2015 [facility] Heart Rate 78 01/12/2015 [facility] Temperature Oral (F) 98.5 F 01/12/2015 [facility] Systolic (mm Hg) 119 01/12/2015 [facility] Diastolic (mm Hg) 71 01/12/2015 [facility] Respitory Rate 18 01/12/2015 [facility] BMI Calculated 25.8 01/08/2015 [facility] Weight 68.182 01/08/2015 [facility] Height 162.56 cm 01/08/2015 [facility] Weight 75 01/07/2015 [facility] BMI Calculated 25.9 01/07/2015 [facility] Height 170.18 cm 01/07/2015 [facility] Encounters Location Location Details Encounter Type Encounter Number Reason For Visit Attending Provider ADM Date DC Date Status Source [facility] Inpatient [id number] Sarai Powell 01/07/2015 01/12/2015 [facility] [id number] Yared Nicole 01/26/2015 01/27/2015 [facility] [place] [facility] [id number] Mauro He 02/06/2015 02/07/2015 [facility] [place] [facility] [place] [facility] [id number] Yared Nicole 02/20/2015 02/25/2015 [facility] [place] [facility] [place] [facility] [id number] Yared Nicole 02/26/2015 03/28/2015 [facility] [place] [facility] [place] [facility] [id number] Yared Nicole 03/28/2015 04/27/2015 [facility] [place] [facility] [id number] Rashaad Silverman 04/07/2015 04/07/2015 [facility] [id number] Clark Torres 04/25/2015 [facility]/26/[facility] [id number] Adam Pope 04/28/2015 04/29/2015 [facility] [place] [facility] [id number] Yared Nicole 04/30/2015 05/30/2015 [facility] [place] [facility] [place] [facility] [id number] Clark Torres 04/30/2015 05/01/2015 [facility] [place] [facility] [place] [facility] [id number] Yared Nicole 06/04/2015 07/04/2015 [facility] [place] [facility] [place] [facility] [id number] Clark Torres 07/04/2015 07/05/2015 [facility] [place] [facility] [id number] Yared Fullick 07/05/2015 08/04/2015 [facility] OP Therapy Patients [id number] Clark Torres 08/23/2015 09/22/2015 [facility] Inpatient [id number] Mauro Cutler 09/05/2015 09/08/2015 [facility] OP Therapy Patients [id number] Yared Fullick 09/24/2015 10/24/2015 [facility] OP Therapy Patients [id number] Yared Fullick 10/17/2015 11/16/2015 [facility] OP Therapy Patients [id number] Yared Fullick 10/24/2015 11/23/2015 [facility] Procedures Procedure Code Date Perfomer Comments Source Arthrocentesis, aspiration and/or injection, small joint or bursa (eg, fingers, toes); without ultrasound guidance 07/04/2015 [place] Injection procedure for shoulder arthrography or enhanced CT/MRI shoulder arthrography 52195 01/26/2015 [place] Kidney stone analysis<sup>2</sup> [id number] kidney stone removal [facility], [place], [place],[facility] Arthroscopy of shoulder [id number] [facility] Colonoscopy<sup>1</sup> [id number] with biopsy removal. [facility], [place], [place],[facility] Lithotripsy [id number] [facility] ORIF - Open reduction and internal fixation of fracture [id number] [facility] Assessment and Plan Assessment and Plan Date Source Extracted from:Title: Orthopedic Surgery Progress Note Author: Medardo Cole MD Date: 09/07/15 Orthopedic Surgery Trauma Progress Note S: Patient still unable to urinate, nervous about going home without having a solution O: Vitals Tmp(F) Pulse BP RR SpO2 FIO2 09/06 19:40 99.4 89 95/62 18 95 --- 09/06 15:00 99.2 89 93/60 18 96 --- 09/06 11:01 99 97 90/55 18 95 --- 09/06 07:08 99 80 93/51 17 95 --- 09/06 04:40 99.0 101 94/56 20 97 --- 24 Hr Tmax: 100.3F (37.94c) at 09/05 23:01 Vital Signs are the last 5 in the past 48 hours. Exam: RLE: Inspection: Dressing on c/d/i Sensation: SPLT DP, SP, Tib, Scarlett, Saph Motor: 5/5 EHL/FHL, 5/5 TA, 5/5 GS, 5/5 Quad, 5/5 Ham Vascular: 2+ DP/PT, all toes BCR <2 sec Medications (11) Active Scheduled Meds (6): 09/05/15 docusate 100 mg PO BID 09/05/15 enoxaparin (Lovenox) 40 mg SUB-Q Q24H 09/05/15 gabapentin (gabapentin 300 mg oral capsule) 300 mg PO Q8H 09/05/15 methocarbamol 500 mg PO TID 09/06/15 polyethylene glycol 3350 (MiraLax) 17 gm PO BID 09/05/15 tamsulosin (Flomax) 0.4 mg PO After Dinner Unscheduled Meds: None PRN Meds (2): 09/04/15 acetaminophen-codeine (Tylenol with Codeine #3 oral tablet) 1 tab PO Q6H 09/04/15 tramadol 100 mg PO Q6H One Time Meds (3): 09/06/15 (Completed) magnesium citrate 150 ml PO ONCE 09/06/15 (Completed) magnesium citrate 150 ml PO ONCE 09/06/15 (not done) sodium biphosphate-sodium phosphate (Fleet Enema Extra) 133 mL [place] ONCE Continuous Infusions: None Assessment and Plan: Patient is a 55 yo M s/p exchange R tibial IMN, partial fibulectomy - R tibial IMN -WBAT RLE -Please continue work with PT - Patient unable to urinate -Urology consulted, offered recommendation of maintaining 0.4mg Flomax daily and d/c with Campbell catheter; appreciate Urology recs -Patient to have campbell placed in AM, educated on home campbell, and given number to follow up with Urology Clinic -Please have patient f/u with Dr. Boswell; call [phone] for appt - Pain control: per primary - DVT PPx: TEDS/SCD, chem ppx per primary - Bowel Regimen: per primary - Pending ORS surgeries: None - Dispo: Will continue to follow, ready for d/c in regard to Orthopedic injuries; appreciate Urology recs for urinary retention Medardo Cole Orthopedic Surgery Pager # [phone] Addendum by Medardo Cole MD on 09/08/2015 08:22 Correction: Name of Urology physician to f/u with is Dr. Gordillo. The phone number is the same. Thank you. 09/08/2015 [facility] Plan of Care No Data Provided for This Section Social History Social History Date Source Social History TypeResponse Substance Abuse Use: None. Exercise 1 Alcohol Current, Type Beer. Frequency: 1-2 times per month. Smoking Status Never smoker; Exposure to Tobacco Smoke None; Cigarette Smoking Last 365 Days No; Reg Smoking Cessation Counseling No 1none now that he is hurt 07/24/2015 [facility] Social History TypeResponse Substance Abuse Use: None. Exercise 1 Alcohol Current, Type Beer. Frequency: 1-2 times per month. Smoking Status Never smoker; Exposure to Tobacco Smoke None; Cigarette Smoking Last 365 Days No; Reg Smoking Cessation Counseling No 1none now that he is hurt 07/24/2015 [facility] Social History TypeResponse Substance Abuse Use: None. Exercise 1 Alcohol Current, Type Beer. Frequency: 1-2 times per month. Smoking Status Never smoker; Exposure to Tobacco Smoke None; Cigarette Smoking Last 365 Days No; Reg Smoking Cessation Counseling No 1none now that he is hurt 07/24/2015 [facility] Social History TypeResponse Substance Abuse Use: None. Exercise 1 Alcohol Current, Type Beer. Frequency: 1-2 times per month. Smoking Status Never smoker; Exposure to Tobacco Smoke None; Cigarette Smoking Last 365 Days No; Reg Smoking Cessation Counseling No 1none now that he is hurt 07/24/2015 [facility] Social History TypeResponse Alcohol Current, Type Beer. Frequency: 1-2 times per month. Smoking Status Never smoker; Exposure to Tobacco Smoke None; Cigarette Smoking Last 365 Days No; Reg Smoking Cessation Counseling No 01/08/2015 [facility] Social History TypeResponse Alcohol Current, Type Beer. Frequency: 1-2 times per month. Smoking Status Never smoker; Exposure to Tobacco Smoke None; Cigarette Smoking Last 365 Days No; Reg Smoking Cessation Counseling No 01/08/2015 [place] Social History TypeResponse Alcohol Current, Type Beer. Frequency: 1-2 times per month. Smoking Status Never smoker; Exposure to Tobacco Smoke None; Cigarette Smoking Last 365 Days No; Reg Smoking Cessation Counseling No 01/08/2015 [facility] Family History No Data Provided for This Section Advance Directives No Data Provided for This Section Functional Status No Data Provided for This Section
--- OUTSIDE RECORDS SUMMARY | 2018-11-10 14:57 | XMS REPORT | Summary of Care ---
Author Author [facility] Organization [facility] Address Unknown Phone Unavailable Encounter THOMAS Cameron(MADONNA) [id number] Date(s): 04/06/15 - 04/07/15 [facility] [address] [facility] provided by [facility] [employer] [facility] [place] [address]- Discharge Disposition: Not Seen Attending Physician: Rashaad Silverman MD Vital Signs Most recent to 1 oldest [Reference Range]: Height 162.56 cm (04/06/15 10:52 PM) Temperature Oral 98.2 DegF [96.4-99.1 DegF] (04/06/15 10:52 PM) Blood Pressure 163/91 mmHg [90-140/60-90 mmHg] *HI* (04/06/15 10:52 PM) Respiratory Rate 18 BRMIN [14-20 BRMIN] (04/06/15 10:52 PM) Peripheral Pulse 59 bpm Rate [60-100 bpm] *LOW* (04/06/15 10:52 PM) Weight 63.636 kg (04/06/15 10:52 PM) Body Mass Index 24.08 m2 (04/06/15 10:52 PM) Problem List Condition Effective Dates Status Health [...]
--- OUTSIDE RECORDS SUMMARY | 2018-11-10 14:58 | XMS REPORT | Summary of Care ---
Author Author [facility] [place] Organization [facility] [place] Address Unknown Phone Unavailable Encounter HQ Tito_guera(FIN) [id number] Date(s): 04/25/15 - 04/25/15 [facility] [place] [address] [place] [address] [phone] Discharge Disposition: Home Attending Physician: Clark Torres MD Vital Signs No data available for [...]
--- OUTSIDE RECORDS SUMMARY | 2018-11-10 14:58 | XMS REPORT ---
Author Author [facility] Address Unknown Phone Unavailable Care Team Providers Care Cosmetics Demonstrator Name Role Phone Unavailable Unavailable Payers Payer Name Policy Type Policy Number Effective Date Expiration Date Problems This patient has no known problems. Allergies, Adverse Reactions, Alerts Allergy Name Allergy Type Status Severity Reaction(s) Onset Date Inactive Date Treating Clinician Comments No Known Allergies DA Active U 2015-08-10 00:00:00 Medications This patient has no known medications.
--- OUTSIDE RECORDS SUMMARY | 2018-11-10 14:58 | XMS REPORT | Summary of Care ---
Author Author [facility] Organization [facility] Address Unknown Phone Unavailable Encounter HQ Tito_guera(FIN) [id number] Date(s): 04/28/15 - 04/28/[address] [facility] [address] [place] [address]- Discharge Disposition: Home Attending Physician: Adam Pope MD Referring Physician: Adam Pope MD Vital Signs No data available for [...]
--- OUTSIDE RECORDS SUMMARY | 2018-11-10 14:58 | XMS REPORT | Summary of Care ---
Author Author [facility] Address Unknown Phone Unavailable Encounter HQ Encntr_alias(FIN) [id number] Date(s): 06/04/15 - 07/03/15 [facility] Discharge Disposition: Home Attending Physician: Yared Nicole [...]
--- OUTSIDE RECORDS SUMMARY | 2018-11-10 14:58 | XMS REPORT | Summary of Care ---
Author Author [facility] Address Unknown Phone Unavailable Encounter HQ Wilmerr_guera(FIN) [id number] Date(s): 07/05/15 - 08/03/15 [facility] Discharge Disposition: Home Attending Physician: Yared Nicole MD Vital Signs No data available for this section Problem List Condition Effective Dates Status Health Status Informant Fracture, Resolved ankle(Confirmed) Kidney Resolved stone(Confirmed) Murmur, Resolved heart(Confirmed) Tubes(Confirmed)1 Resolved 1ear tubes. Allergies, Adverse Reactions, Alerts Substance Reaction Severity Status NKDA Active Medications No data available for this section Results No data available for this section Immunizations Given and Recorded Vaccine Date Status Refusal Reason diphtheria/pertussis, acel/tetanus adult 01/07/15 Given Procedures Procedure Date Related Diagnosis Body Site Arthroscopy of shoulder Colonoscopy1 Lithotripsy ORIF - Open reduction and internal fixation of fracture 1with biopsy removal. Social History Social History Type Response Substance Abuse Use: None. Exercise 1 Alcohol Current, Type Beer. Frequency: 1-2 times per month. Smoking Status Never smoker; Exposure to Tobacco Smoke None; Cigarette Smoking Last 365 Days No; Reg Smoking Cessation Counseling No 1none now that he is hurt Assessment and Plan No data available for this section
--- OUTSIDE RECORDS SUMMARY | 2018-11-10 14:58 | XMS REPORT | Summary of Care ---
Author Author [facility] [place] Organization [facility] [place] Address Unknown Phone Unavailable Encounter HQ Jaminntr_guera(FIN) [id number] Date(s): 02/06/15 - 02/06/15 [facility] [place] [address] [place] [address] [phone] Discharge Disposition: Home Attending Physician: Mauro Cutler MD Vital Signs No data available for [...]
--- OUTSIDE RECORDS SUMMARY | 2018-11-10 14:58 | XMS REPORT | Summary of Care ---
Author Author [facility] Address Unknown Phone Unavailable Encounter HQ Tito_guera(FIN) [phone] Date(s): 09/24/15 - 10/23/15 [facility] Discharge Disposition: Home or Self Care Attending Physician: Yared Nicole MD Vital Signs [...]
--- OUTSIDE RECORDS SUMMARY | 2018-11-10 14:58 | XMS REPORT | Summary of Care ---
Author Author [facility] Address Unknown Phone Unavailable Encounter HQ Encntr_alias(FIN) [id number] Date(s): 03/28/15 - 04/26/15 [facility] Discharge Disposition: Home Attending Physician: Yared Nicole [...]
--- OUTSIDE RECORDS SUMMARY | 2018-11-10 14:58 | XMS REPORT | Summary of Care ---
Author Author [facility] Address Unknown Phone Unavailable Encounter HQ Encntr_guera(FIN) [id number] Date(s): 02/26/15 - 03/27/15 [facility] [place] Discharge Disposition: Home Attending Physician: Yared Nicole [...]
--- OUTSIDE RECORDS SUMMARY | 2018-11-10 14:58 | XMS REPORT | Summary of Care ---
Author Author [facility] Organization [facility] [place] Address Unknown Phone Unavailable Encounter HQ Jaminntr_aliedward(FIN) [id number] Date(s): 07/04/15 - 07/04/15 [facility] [address] [place] [phone] Discharge Disposition: Home Attending Physician: Clark Torres [...] Procedures Procedure Date Related Diagnosis Body Site Arthrocentesis, aspiration and/or injection, 07/04/15 small joint or bursa (eg, fingers, toes); without ultrasound guidance Colonoscopy1 Kidney stone analysis2 1with biopsy removal. 2kidney stone removal Social History Social History Type Response Alcohol Current, Type Beer. Frequency: 1-2 times per month. Smoking Status Never smoker; Exposure to Tobacco Smoke None; Cigarette Smoking Last 365 Days No; Reg Smoking Cessation Counseling No Assessment and Plan No data available for this section
--- OUTSIDE RECORDS SUMMARY | 2018-11-10 14:58 | XMS REPORT | Summary of Care ---
Author Author [facility] Address Unknown Phone Unavailable Encounter HQ Tito_guera(FIN) [id number] Date(s): 10/24/15 - 11/22/15 [facility] Discharge Disposition: Home or Self Care [...]
--- OUTSIDE RECORDS SUMMARY | 2018-11-10 14:58 | XMS REPORT | Summary of Care ---
Author Author [facility] Address Unknown Phone Unavailable Encounter HQ Encntr_aliedward(FIN) [id number] Date(s): 10/17/15 - 11/15/15 [facility] Discharge Disposition: Home or Self Care Attending [...]
--- OUTSIDE RECORDS SUMMARY | 2018-11-10 14:58 | XMS REPORT | Summary of Care ---
Author Author [facility] Organization [facility] Address Unknown Phone Unavailable Encounter THOMAS Cameron(MADONNA) [id number] Date(s): 09/05/15 - 09/08/15 [facility] [address] [employer] provided by [employer] [place] [address]- Discharge Disposition: Home Attending Physician: Mauro Cutler MD Admitting Physician: Mauro Cutler MD Referring Physician: Mauro Cutler MD Vital Signs 1 2 3 Most recent to oldest [Reference Range]: 162.56 cm (09/04/15 9:51 AM) 162.56 cm (08/30/15 11:50 AM) Height 98.6 DegF (09/08/15 10:33 AM) 99.2 DegF *HI* (09/08/15 7:08 AM) 98.7 DegF (09/08/15 3:55 AM) Temperature Oral [96.4-99.1 DegF] 111/72 mmHg (09/08/15 10:33 AM) 97/57 mmHg (09/08/15 7:08 AM) 100/66 mmHg (09/08/15 3:55 AM) Blood Pressure [90-140/60-90 mmHg] 18 BRMIN (09/08/15 10:33 AM) 18 BRMIN (09/08/15 7:08 AM) 18 BRMIN (09/08/15 3:55 AM) Respiratory Rate [14-20 BRMIN] 93 bpm (09/08/15 10:33 AM) 67 bpm (09/08/15 7:08 AM) 75 bpm (09/08/15 3:55 AM) Peripheral Pulse Rate [60-100 bpm] 81.818 kg (09/05/15 5:25 AM) 81.818 kg (09/04/15 9:51 AM) 67.273 kg (08/30/15 11:50 AM) Weight 30.96 m2 (09/04/15 9:51 AM) 25.46 m2 (08/30/15 11:50 AM) Body Mass Index Problem List Condition Effective Dates Status Health Status Informant Fracture, Resolved ankle(Confirmed) Kidney Resolved stone(Confirmed) Murmur, Resolved heart(Confirmed) Tubes(Confirmed)1 Resolved 1ear tubes. Allergies, Adverse Reactions, Alerts Substance Reaction Severity Status NKDA Active Medications Ancef + sodium chloride 0.9% INJ 100 mL 2 gm, Route: IVPB, ABXQ8H, Dosing Weight 81.818, kg, Start date: 09/04/15 18:00: 00 CDT, Duration: 1 day, Stop date: 09/05/15 6:00:00 CDT Notes: (Same As: Ancef, Kefzol)Cefazolin FOR IV SET ONLY MEDICATION WAS TE Product Size: 1000 mgProduct Wasted: 0 mg Start Date: 09/04/15 Stop Date: 09/05/15 Status: Completed ANES flumazenil 0.2 mg, 2 mL, Route: IVP, Drug form: INJ, PRN, Dosing Weight 81.818, kg, PRN James zodiazepine Reversal, Initial dose, Start date: 09/04/15 17:23:00 CDT, Duration: 30 day, Stop date: 10/04/15 17:22:00 CDT Notes: (Same as: Romazicon) Start Date: 09/04/15 Stop Date: 09/04/15 Status: Discontinued ANES HYDROmorphone 0.5 mg, 0.25 mL, Route: IVP, Drug form: INJ, Q5Min, Dosing Weight 81.818, kg, MO N Pain Score 7-10, Start date: 09/04/15 17:23:00 CDT, Duration: 4 doses or times , Stop date: Limited # of times Notes: Same as: Dilaudid Start Date: 09/04/15 Stop Date: 09/04/15 Status: Completed ANES naloxone 0.4 mg, 1 mL, Route: IVP, Drug form: INJ, Q2MIN, Dosing Weight 81.818, kg, PRN N arcotic Reversal, Start date: 09/04/15 17:23:00 CDT, Duration: 8 doses or times, Stop date: Limited # of times Notes: Same as Narcan Start Date: 09/04/15 Stop Date: 09/04/15 Status: Discontinued ANES ondansetron 4 mg, 2 mL, Route: IVP, Drug form: INJ, ONCE, Dosing Weight 81.818, kg, PRN Naus ea & Vomiting, Start date: 09/04/15 17:23:00 CDT Notes: (Same as: Zoan) MEDICATION WASTE Product Size: 4 mgProduct Was vane: ___ mg Start Date: 09/04/15 Stop Date: 09/04/15 Status: Discontinued ceFAZolin 2 gm, 100 mL, Route: IVPB, Drug form: INJ, PRE OP, Start date: 09/03/15 23:00:00 CDT, Duration: 1 day, Stop date: 09/04/15 22:59:00 CDT Notes: Same as: Ancef Start Date: 09/03/15 Stop Date: 09/04/15 Status: Discontinued docusate 100 mg, 1 cap, Route: PO, Drug form: CAP, BID, Dosing Weight 81.818, kg, Start d ate: 09/05/15 9:00:00 CDT, Duration: 30 day, Stop date: 10/04/15 17:00:00 CDT Notes: (Same as: Colace) (Do Not Crush) Start Date: 09/05/15 Stop Date: 09/08/15 Status: Discontinued docusate sodium 100 mg oral capsule 100 mg=1 cap, PO, BID, # 28 cap, 0 Refill(s) Start Date: 09/08/15 Stop Date: 09/22/15 Status: Ordered enoxaparin 40 mg/0.4 mL subcutaneous solution 40 mg=0.4 mL, SUB-Q, Q24H, Inject 0.4mL daily for a total of 21 days post-op, # 8 mL, 0 Refill(s) Start Date: 09/08/15 Stop Date: 10/10/15 Status: Ordered Fleet Enema Extra 133 mL, Route: MO, Drug Form: GRIS, Dosing Weight 81.818, kg, ONCE, Start date: 09/06/15 16:54:00 CDT, Stop date: 09/06/15 16:54:00 CDT Start Date: 09/06/15 Stop Date: 09/06/15 Status: Completed Flomax 0.4 mg, 1 cap, Route: PO, Drug form: CAP, After Dinner, Dosing Weight 81.818, kg , Start date: 09/05/15 21:00:00 CDT, Duration: 30 day, Stop date: 10/05/15 17:00 :00 CDT Notes: (Same As: Flomax) "Do Not Crush" Start Date: 09/05/15 Stop Date: 09/08/15 Status: Discontinued gabapentin 300 mg oral capsule 300 mg=1 cap, PO, Q8Hnow, # 42 cap, 0 Refill(s) Start Date: 09/08/15 Stop Date: 09/22/15 Status: Ordered gabapentin 300 mg oral capsule 300 mg, 1 cap, Route: PO, Drug form: CAP, Q8H, Dosing Weight 81.818, kg, (CrCl > 60 ml/min), Start date: 09/05/15 0:00:00 CDT, Duration: 30 day, Stop date: 09/23 03/10 16:00:00 CDT Notes: (Same as: Neurontin) Start Date: 09/05/15 Stop Date: 09/08/15 Status: Discontinued Lovenox 40 mg, 0.4 mL, Route: SUB-Q, Drug form: INJ, Q24H, Dosing Weight 81.818, kg, Kamryn ority: STAT, Start date: 09/04/15 17:12:00 CDT, Duration: 30 day, Stop date: 12/08 18:00:00 CDT Notes: (Same as: Lovenox) Start Date: 09/04/15 Stop Date: 09/04/15 Status: Discontinued Lovenox 40 mg, 0.4 mL, Route: SUB-Q, Drug form: INJ, Q24H, Dosing Weight 81.818, kg, Sta rt date: 09/05/15 0:00:00 CDT, Duration: 30 day, Stop date: 10/04/15 0:00:00 CDT Notes: (Same as: Lovenox) Start Date: 09/05/15 Stop Date: 09/08/15 Status: Discontinued magnesium citrate 150 ml, Route: PO, Drug Form: LIQ, Dosing Weight 81.818, kg, ONCE, STAT, Start d ate: 09/06/15 17:19:00 CDT, Stop date: 09/06/15 17:19:00 CDT Notes: (Same as: Citrate of Magnesia) Start Date: 09/06/15 Stop Date: 09/06/15 Status: Completed magnesium citrate 150 ml, Route: PO, Drug Form: LIQ, Dosing Weight 81.818, kg, ONCE, Start date: 0 09/06/15 20:41:00 CDT, Stop date: 09/06/15 20:41:00 CDT Notes: (Same as: Citrate of Magnesia) Start Date: 09/06/15 Stop Date: 09/06/15 Status: Completed methocarbamol 500 mg, 1 tab, Route: PO, Drug form: TAB, TID, Dosing Weight 81.818, kg, Start d ate: 09/05/15 9:00:00 CDT, Duration: 30 day, Stop date: 10/04/15 17:00:00 CDT Notes: (Same as:Robaxin) Start Date: 09/05/15 Stop Date: 09/08/15 Status: Discontinued MiraLax 17 gm, 1 pkt, Route: PO, Drug form: PWDR, BID, Dosing Weight 81.818, kg, Start d ate: 09/06/15 0:00:00 CDT, Duration: 30 day, Stop date: 10/05/15 17:00:00 CDT Notes: Dissolve in 8 oz of water or juice.(Same as: Miralax) Start Date: 09/06/15 Stop Date: 09/08/15 Status: Discontinued morphine Sulfate 4 mg, 1 mL, Route: IV, Drug form: INJ, ONCE, Start date: 09/05/15 5:00:00 CDT, S top date: 09/05/15 5:00:00 CDT Notes: (Same as:MORPhine Sulfate) Start Date: 09/05/15 Stop Date: 09/05/15 Status: Completed tamsulosin 0.4 mg oral capsule 0.4 mg=1 cap, PO, Daily, # 30 cap, 0 Refill(s) Start Date: 09/08/15 Stop Date: 10/08/15 Status: Ordered tramadol 100 mg, 2 tab, Route: PO, Drug form: TAB, Q6H, Dosing Weight 81.818, kg, PRN Oziel n Score 1-3, Start date: 09/04/15 18:00:00 CDT, Stop date: 10/04/15 12:00:00 CDT Notes: Not to exceed 400mg/day. (Same As: Ultram) Start Date: 09/04/15 Stop Date: 09/08/15 Status: Discontinued tramadol 50 mg oral tablet 100 mg=2 tab, PO, Q6H, PRN Pain Score 1-3, # 30 tab, 1 Refill(s) Start Date: 09/08/15 Stop Date: 11/10/15 Status: Ordered Tylenol with Codeine #3 oral tablet 1 tab, PO, Q6H, PRN Pain Score 1-3, # 30 tab, 1 Refill(s) Start Date: 09/08/15 Stop Date: 11/10/15 Status: Ordered Tylenol with Codeine #3 oral tablet 1 tab, Route: PO, Drug Form: TAB, Dosing Weight 81.818, kg, Q6H, Start date: 02/07 18:00:00 CDT, Duration: 30 day, Stop date: 10/04/15 12:00:00 CDT Notes: Do not exceed 4gm/day of acetaminophen. (Same as: Tylenol with Codeine # 3) Start Date: 09/04/15 Stop Date: 09/07/15 Status: Discontinued Tylenol with Codeine #3 oral tablet 1 tab, Route: PO, Drug Form: TAB, Dosing Weight 81.818, kg, Q6H, PRN Pain Score 1-3, Start date: 09/04/15 17:13:00 CDT, Duration: 30 day, Stop date: 10/04/15 17 :12:00 CDT Notes: Do not exceed 4gm/day of acetaminophen. (Same as: Tylenol with Codeine # 3) Start Date: 09/04/15 Stop Date: 09/08/15 Status: Discontinued Results HEMATOLOGY Most recent to 1 oldest [Reference Range]: Hgb [14.0-18.0 g/dL] 12.6 g/dL *LOW* (09/05/15 6:16 AM) Hct [42.0-54.0 %] 37.0 % *LOW* (09/05/15 6:16 AM) Immunizations Given and Recorded Vaccine Date Status [...] that he is hurt Assessment and Plan Extracted from: Title: Orthopedic Surgery Progress Author: Medardo Cole MD Date: 09/07/15 Note Orthopedic Surgery Trauma Progress Note S: Patient still unable to urinate, nervous about going home without having a solution O: VitalsTmp(F)[id number] 09/06 19:[id number]--- 09/06 15:[id number]--- 09/06 11:[id number]--- 09/06 07:[id number]--- 09/06 04:[id number]--- 24 Hr Tmax: 100.3F (37.94c) at 09/05 23:01Vital Signs are the last 5 in the [...] biphosphate-sodium phosphate (Fleet Enema Extra) 133 mL MO ONCE Continuous Infusions: None Assessment and Plan: [...] have patient f/u with Dr. Boswell; call [phone] for appt - Pain control: per primary - DVT PPx: TEDS/SCD, chem ppx per primary - Bowel Regimen: per primary - Pending ORS surgeries: None - Dispo: Will continue to follow, ready for d/c in regard to Orthopedic injuries; appreciate Urology recs for urinary retention Medardo Cole Orthopedic Surgery Pager # [phone] Addendum Correction: by Kelsey, Name of Urology physician to f/u with is Dr. Gordillo. The phone number is the same. Thank Medardo newton. Andrew SMILEY on 09/08/2015 08:22
--- OUTSIDE RECORDS SUMMARY | 2018-11-10 14:58 | XMS REPORT | Summary of Care ---
Author Author [facility] Address Unknown Phone Unavailable Encounter HQ Wilmerr_guera(FIN) [phone] Date(s): 02/20/15 - 02/25/15 [facility] Discharge Disposition: Still a patient Attending Physician: Yared Nicole MD Vital Signs [...]
--- OUTSIDE RECORDS SUMMARY | 2018-11-10 14:58 | XMS REPORT | Summary of Care ---
Author Author [facility] Address Unknown Phone Unavailable Encounter HQ Encntr_alias(FIN) [id number] Date(s): 04/30/15 - 05/29/15 [facility] Discharge Disposition: Home Attending Physician: Yared Nicole [...]
--- OUTSIDE RECORDS SUMMARY | 2018-11-10 14:58 | XMS REPORT | Summary of Care ---
Author Author [facility] Address Unknown Phone Unavailable Encounter HQ Nisha(FIN) [phone] Date(s): 08/23/15 - 09/21/15 [facility] Discharge Disposition: Home or Self Care Attending Physician: Clark Torres MD Vital Signs [...]
--- OUTSIDE RECORDS SUMMARY | 2018-11-10 14:58 | XMS REPORT | Summary of Care ---
Author Author [facility] [place] Organization [facility] [place] Address Unknown Phone Unavailable Encounter HQ Encntr_aliedward(FIN) [phone] Date(s): 04/30/15 - 04/30/15 [facility] [place] [address] [place] [address] [phone] Discharge Disposition: Home Attending Physician: Clark Torres [...]
[2018-11-10] MEDS ORDERED: ASPIRIN 81 MG CHEW TAB PO ONE (15:00)
--- NOTE | 2018-11-10 15:15 | NUR ---
PT STATED "I'M NOT REALLY HAVING CHEST PAIN, IT'S REALLY MORE OF MY ARM, I CAN FEEL MY PULSE, I JUST SAID THAT I WAS SO I COULD BE SEEN SOONER, ALTHOUGH IT DID HAPPEN A LITTLE YESTERDAY, BUT I AM ALSO CONCERNED ABOUT WHAT FEELS LIKE A SPIDER BITE ON MY SHOULDER"; RADIAL PULSES COMPARED, BOTH EQUAL AND STRONG, WNL, LT SHOULDER AREA APPEARS NORMAL; INFORMED DR. MARTINEZ.
--- NOTE | 2018-11-10 15:20 | NUR ---
PT GIVEN URINAL FOR UA SPECIMEN COLLECTION, STATES "I CAN'T PEE HERE, I JUST PEED", INFORMED THAT WE NEED UA, PT STATES THAT HE WILL PRESS CALL LIGHT WHEN READY TO BE ASSISTED TO GAASTRAWAY BATHROOM.
--- NOTE | 2018-11-10 15:25 | NUR ---
RADIOLOGY AT BEDSIDE AT THIS TIME FOR CXR.
[2018-11-10 15:54] LABS: BASOPHILS # (AUTO) 0.1 (0.0-0.1); BASOPHILS % 0.6 % (0.0-1.0); EOSINOPHILS # (AUTO) 0.3 (0.0-0.4); EOSINOPHILS % 4.1 % (0.0-6.0); HEMOGLOBIN 15.8 g/dL (14.0-18.0); LYMPHOCYTES # (AUTO) 1.9 (1.0-3.2); LYMPHOCYTES % 24.9 % (18.0-39.1); MEAN CORPUSCULAR HEMOGLOBIN 30.6 pg (28-32); MEAN CORPUSCULAR HGB CONC 34.3 g/dL (31-35); MONOCYTES # (AUTO) 0.6 (0.2-0.8); MONOCYTES % 7.7 % (4.4-11.3); NEUTROPHILS # (AUTO) 4.9 (2.1-6.9); NEUTROPHILS % 62.3 % (38.7-80.0); PLATELET COUNT 293 x10e3/uL (140-360); RED BLOOD COUNT 5.17 x10e6/uL (4.3-5.7); RED CELL DISTRIBUTION WIDTH 12.7 % (11.7-14.4)
[2018-11-10] MEDS ORDERED: METOPROLOL SUCCINATE 50 MG TAB XL PO ONE (16:00)
[2018-11-10 16:04] LABS: INR 0.98; PROTHROMBIN TIME 13.5 seconds (11.9-14.5)
[2018-11-10 16:05] LABS: PARTIAL THROMBOPLASTIN TIME 28.4 seconds (23.8-35.5)
--- NOTE | 2018-11-10 16:07 | Diagnostic Imaging Report ---
EXAM: CHEST SINGLE (PORTABLE) DATE: 11/10/2018 2:57 PM INDICATION: Chest pain COMPARISON: None FINDINGS: The trachea is midline. The lungs are symmetrically expanded without evidence for large focal consolidation, pneumothorax, or significant pleural effusion. The cardiomediastinal silhouette and pulmonary vasculature are within normal limits. No acute osseous abnormality is identified. The surrounding soft tissues are unremarkable. IMPRESSION: No acute cardiopulmonary process identified. Signed by: Dr. Willis Valentin MD on 11/10/2018 4:04 PM
[2018-11-10 16:13] LABS: ALANINE AMINOTRANSFERASE 29 IU/L (0-55); ALBUMIN 3.9 g/dL (3.5-5.0); ALBUMIN/GLOBULIN RATIO 1.3 (0.8-2.0); ALKALINE PHOSPHATASE 73 IU/L (40-150); ANION GAP 11.9 mmol/L (8-16); BLOOD UREA NITROGEN 12 mg/dL (7-26); BUN/CREATININE RATIO 9 (6-25); CALCIUM 9.8 mg/dL (8.4-10.2); CARBON DIOXIDE 25 mmol/L (22-29); CHLORIDE 105 mmol/L (98-107); CREATINE KINASE 115 IU/L (30-200); CREATININE, SERUM 1.28 mg/dL (0.72-1.25); EST GLOMERULAR FILTRATION RATE 58 ML/MIN (60-); GLUCOSE 91 mg/dL (74-118); LIPASE 15 U/L (8-78); POTASSIUM 3.9 mmol/L (3.5-5.1); SODIUM 138 mmol/L (136-145)
--- NOTE | 2018-11-10 16:16 | NUR ---
PT ATTEMPTED TO OBTAIN UA SPECIMEN BUT SPILLED CUP IN HALLWAY BATHROOM, INFORMED DR. MARTINEZ, PT GIVEN WATER PER REQUEST, AWAITING PRODUCTION OF ANOTHER SPECIMEN.
[2018-11-10 17:26] LABS: BILIRUBIN,URINE NEGATIVE (NEGATIVE); CLARITY,URINE CLEAR (CLEAR); COLOR,URINE YELLOW (YELLOW); KETONES,URINE NEGATIVE (NEGATIVE); LEUKOCYTE ESTERASE ,URINE NEGATIVE (NEGATIVE); NITRITE,URINE NEGATIVE (NEGATIVE); PROTEIN,URINE DIPSTICK NEGATIVE (NEGATIVE); URINE UROBILINOGEN 0.2 mg/dL (0.2 - 1)
[2018-11-10 17:53] VITALS: BP 140/87
== END 2018-11-10 17:55 | disposition home or self-care (01) ==
LOC: ER 14:55
DX: R07.9 Chest pain, unspecified (principal)
CPT/HCPCS: 36415; 71045; 80053; 81001; 82550; 82553; 83690; 83880; 84484; 85025; 85610; 85730; 87086; 93005; 99284